=== PATIENT | male | born 1985 | race Caucasian/White ===

== ENCOUNTER 2021-08-25 13:04 | Inpatient (IN) | payer OTHER ==
[2021-08-25 13:16] VITALS: BMI 26.6
[2021-08-25] MEDS ORDERED: diazePAM 5 MG TABLET PO PRN (14:03)
[2021-08-25] MEDS ORDERED: methaDONE HCL 10 MG TABLET (FOR DETOX USE ONLY) PO ONE (14:03)
[2021-08-25] MEDS ORDERED: NICOTINE 10 MG CARTRIDGE (INHALER) IH PRN (14:03)
[2021-08-25] MEDS ORDERED: MAG HYDROX/AL HYDROX/SIMETH 30 ML UNIT-DOSE CUP PO PRN (14:03)
[2021-08-25] MEDS ORDERED: IBUPROFEN 400 MG TABLET (FP) PO PRN (14:03)
[2021-08-25] MEDS ORDERED: BENZOCAINE/MENTHOL (CHLORASEPTIC ) LOZENGE MM PRN (14:03)
[2021-08-25] MEDS ORDERED: LOPERAMIDE HCL 2 MG CAPSULE PO PRN (14:03)
[2021-08-25] MEDS ORDERED: MAGNESIUM HYDROX 2400MG/30ML ORAL SUSPENSION 30 ML CUP PO PRN (14:03)
[2021-08-25] MEDS ORDERED: DICYCLOMINE HCL 10 MG CAPSULE PO PRN (14:03)
[2021-08-25] MEDS ORDERED: MAGNESIUM CITRATE 300 ML BOTTLE PO PRN (14:03)
[2021-08-25] MEDS ORDERED: ONDANSETRON *ODT* 4 MG TABLET SL PRN (14:03)
[2021-08-25] MEDS ORDERED: IBUPROFEN 600 MG TABLET (FP) PO PRN (14:03)
[2021-08-25] MEDS ORDERED: ACETAMINOPHEN 325 MG TABLET (FP) PO PRN ×2 (14:03)
[2021-08-25] MEDS ORDERED: BISMUTH SUBSALICYLATE 524 MG/30 ML PO PRN (14:03)
[2021-08-25] MEDS ORDERED: METHOCARBAMOL 500 MG TABLET PO PRN (14:03)
[2021-08-25] MEDS ORDERED: cloNIDine HCL 0.1 MG TABLET PO PRN (14:03)
[2021-08-25] MEDS ORDERED: NALOXONE HCL (KLOXXADO) 8 MG SPRAY NS PRN (14:03)
[2021-08-25] MEDS: diazePAM 5 MG TABLET PO SCH ×2 (14:29→22:22)
[2021-08-25] MEDS: NICOTINE 21 MG/24 HOURS TOPICAL PATCH TD SCH (15:00)
[2021-08-25] MEDS: hydrOXYzine PAMOATE 25 MG CAPSULE (FP) PO SCH ×2 (17:15→22:22)
[2021-08-25] MEDS: THIAMINE HCL 100 MG TABLET (FP) PO SCH (22:22)
[2021-08-25] MEDS: MELATONIN 5 MG TABLETS PO SCH (22:23)
[2021-08-26] MEDS: diazePAM 5 MG TABLET PO SCH ×4 (05:14→22:04)
[2021-08-26] MEDS: hydrOXYzine PAMOATE 25 MG CAPSULE (FP) PO SCH ×5 (05:14→22:03)
[2021-08-26] MEDS ORDERED: methaDONE HCL 10 MG TABLET (FOR DETOX USE ONLY) ONE (08:59)
[2021-08-26] MEDS: NICOTINE 21 MG/24 HOURS TOPICAL PATCH TD SCH (09:33)
[2021-08-26] MEDS ORDERED: PRENATAL VITAMINS W/ FOLIC ACID TABLET (FP) PO SCH (10:00)
[2021-08-26 10:37] LABS: ALBUMIN 4.2 g/dl (3.4-5.0); BLOOD UREA NITROGEN 18.7 mg/dL (7-18); CALCIUM 9.3 mg/dL (8.5-10.1)
[2021-08-26 10:41] LABS: CREATININE 0.9 mg/dL (0.55-1.3)
[2021-08-26 10:42] LABS: BILIRUBIN,TOTAL 0.3 mg/dL (0.2-1); TOT PROT 7.9 g/dl (6.4-8.2)
[2021-08-26 10:44] LABS: HEMATOCRIT 39.2 % (35.4-49); HEMOGLOBIN 12.9 GM/dL (11.7-16.9); MCH 26.8 pg (25.7-33.7); MEAN CELL VOLUME 81.2 fl (80-96); MEAN PLT VOLUME 9.6 fl (7.5-11.1); PLATELET COUNT 261 10^3/uL (134-434); RBC 4.82 M/mm3 (4.00-5.60); RDW 15.6 % (11.9-15.9); WHITE BLOOD COUNT 4.2 K/mm3 (4.0-10.0)
[2021-08-26] MEDS: THIAMINE HCL 100 MG TABLET (FP) PO SCH (22:03)
[2021-08-26] MEDS: MELATONIN 5 MG TABLETS PO SCH (22:04)
[2021-08-27] MEDS ORDERED: diazePAM 5 MG TABLET PO SCH (06:00)
[2021-08-27] MEDS: hydrOXYzine PAMOATE 25 MG CAPSULE (FP) PO SCH (06:38)
[2021-08-27 06:45] VITALS: BP 107/70; PULSE 85; TEMP 97.7
[2021-08-27] MEDS ORDERED: methaDONE HCL 10 MG TABLET (FOR DETOX USE ONLY) PO ONE (10:00)
[2021-08-27] MEDS ORDERED: ALBUTEROL SO4 HFA INHALER IH PRN (11:37)
[2021-08-28] MEDS ORDERED: diazePAM 5 MG TABLET PO SCH (06:00)
[2021-08-29] MEDS ORDERED: diazePAM 5 MG TABLET PO ONE (06:00)
[2021-08-29] MEDS ORDERED: methaDONE HCL 10 MG TABLET (FOR DETOX USE ONLY) PO ONE (10:00)
== END 2021-08-27 10:14 | disposition left against medical advice (07) | DRG 770 ==
LOC: YASAS 13:04 → Y6N 14:22
PROVIDERS: ADMIT Allergy & Immunology; ATTEND Surgery
PROC: HZ2ZZZZ Detoxification Services for Substance Abuse Treatment (ICD-10-PCS; principal; 2021-08-25)
DX: F11.23 Opioid dependence with withdrawal (principal); F13.230 Sedative, hypnotic or anxiolytic dependence with withdrawal, uncomplicated; F14.20 Cocaine dependence, uncomplicated; F12.20 Cannabis dependence, uncomplicated; F17.210 Nicotine dependence, cigarettes, uncomplicated; F41.8 Other specified anxiety disorders; J45.909 Unspecified asthma, uncomplicated; B18.2 Chronic viral hepatitis C; G47.00 Insomnia, unspecified; Z20.822 Contact with and (suspected) exposure to COVID-19; Z88.8 Allergy status to other drugs, medicaments and biological substances; Z88.0 Allergy status to penicillin; Z88.6 Allergy status to analgesic agent
CPT/HCPCS: 36415; 80053; 85027; 86780; 87811; 93005; 93010; C9803-CS; J0735; U0003; U0005

== ENCOUNTER 2021-12-20 11:25 | Inpatient (IN) | payer OTHER ==
[2021-12-20 11:47] VITALS: BMI 30.5
[2021-12-20] MEDS ORDERED: LOPERAMIDE HCL 2 MG CAPSULE PO PRN (12:01)
[2021-12-20] MEDS ORDERED: guaiFENesin 200 MG/10 ML 10 ML UNIT-DOSE CUPS PO PRN (12:01)
[2021-12-20] MEDS ORDERED: MAGNESIUM HYDROX 2400MG/30ML ORAL SUSPENSION 30 ML CUP PO PRN (12:01)
[2021-12-20] MEDS ORDERED: MAGNESIUM CITRATE 300 ML BOTTLE PO PRN (12:01)
[2021-12-20] MEDS ORDERED: ACETAMINOPHEN 325 MG TABLET (FP) PO PRN (12:01)
[2021-12-20] MEDS ORDERED: NICOTINE 10 MG CARTRIDGE (INHALER) IH PRN (12:01)
[2021-12-20] MEDS ORDERED: P-EPHED 60MG/TRIPROLIDI 2.5MG TABLET PO PRN (12:01)
[2021-12-20] MEDS ORDERED: ALBUTEROL SO4 HFA INHALER IH PRN (12:06)
[2021-12-20] MEDS ORDERED: NICOTINE 7 MG/24 HOURS TOPICAL PATCH TD SCH (12:15)
[2021-12-20] MEDS ORDERED: NICOTINE 14 MG/24 HOURS TOPICAL PATCH TD SCH (12:15)
[2021-12-20] MEDS ORDERED: TUBERCULIN PPD 5 TU/0.1ML VIAL ID ONE (16:27)
[2021-12-20] MEDS: hydrOXYzine PAMOATE 25 MG CAPSULE (FP) PO PRN (16:29)
[2021-12-20] MEDS: NICOTINE 21 MG/24 HOURS TOPICAL PATCH TD SCH (16:29)
[2021-12-20] MEDS: PRENATAL VITAMINS W/ FOLIC ACID TABLET (FP) PO SCH (16:33)
[2021-12-20 17:18] LABS: HEMATOCRIT 37.3 % (35.4-49); HEMOGLOBIN 12.4 GM/dL (11.7-16.9); MCH 26.9 pg (25.7-33.7); MCHC 33.2 g/dl (32.0-35.9); MEAN CELL VOLUME 81.2 fl (80-96); MEAN PLT VOLUME 9.4 fl (7.5-11.1); PLATELET COUNT 174 10^3/uL (134-434); WHITE BLOOD COUNT 4.8 K/mm3 (4.0-10.0)
[2021-12-20 17:25] LABS: BLOOD UREA NITROGEN 14.8 mg/dL (7-18); CALCIUM 9.4 mg/dL (8.5-10.1)
[2021-12-20 17:28] LABS: CREATININE 1.1 mg/dL (0.55-1.3)
[2021-12-20 17:30] LABS: BILIRUBIN,TOTAL 0.3 mg/dL (0.2-1); TOT PROT 7.4 g/dl (6.4-8.2)
[2021-12-20 17:50] LABS: SYPHILIS W/ RPR CONF NON-REACTIVE (NONREACTIVE)
[2021-12-20] MEDS: THIAMINE HCL 100 MG TABLET (FP) PO SCH (21:15)
[2021-12-20] MEDS: MELATONIN 5 MG TABLETS PO SCH (21:15)
[2021-12-21] MEDS ORDERED: NICOTINE 7 MG/24 HOURS TOPICAL PATCH TD SCH (10:00)
[2021-12-21] MEDS ORDERED: methaDONE HCL 10 MG TABLET PO SCH (10:00)
[2021-12-21] MEDS: PRENATAL VITAMINS W/ FOLIC ACID TABLET (FP) PO SCH (10:15)
[2021-12-21] MEDS: NICOTINE 21 MG/24 HOURS TOPICAL PATCH TD SCH (10:17)
[2021-12-21] MEDS: hydrOXYzine PAMOATE 25 MG CAPSULE (FP) PO PRN ×2 (10:17→21:10)
[2021-12-21] MEDS ORDERED: methaDONE 80 MG, methaDONE 10 MG PO ONE (10:30)
[2021-12-21] MEDS: MAG HYDROX/AL HYDROX/SIMETH 30 ML UNIT-DOSE CUP PO PRN (11:43)
[2021-12-21] MEDS: PSYLLIUM 5.85 GM PACKET PO SCH ×2 (13:15→21:11)
[2021-12-21] MEDS: DOCUSATE SODIUM 100 MG CAPSULE (FP) PO SCH ×2 (13:21→21:10)
[2021-12-21] MEDS: GABAPENTIN 100 MG CAPSULE PO SCH ×2 (13:22→21:10)
[2021-12-21] MEDS ORDERED: GLYCERIN 1 RECTAL SUPPOSITORY, ADULT RC ONE (18:34)
[2021-12-21] MEDS: THIAMINE HCL 100 MG TABLET (FP) PO SCH (21:10)
[2021-12-21] MEDS: MELATONIN 5 MG TABLETS PO SCH (21:10)
[2021-12-21] MEDS: HYDROCORTISONE ACETATE 25 MG/SUPP.RECT RC SCH (21:11)
[2021-12-22] MEDS: methaDONE 80 MG, methaDONE 10 MG PO SCH (06:08)
[2021-12-22] MEDS: DOCUSATE SODIUM 100 MG CAPSULE (FP) PO SCH ×3 (06:08→21:16)
[2021-12-22] MEDS: GABAPENTIN 100 MG CAPSULE PO SCH ×3 (06:08→21:16)
[2021-12-22] MEDS: MAG HYDROX/AL HYDROX/SIMETH 30 ML UNIT-DOSE CUP PO PRN (09:30)
[2021-12-22] MEDS: NICOTINE 21 MG/24 HOURS TOPICAL PATCH TD SCH (09:31)
[2021-12-22] MEDS: PRENATAL VITAMINS W/ FOLIC ACID TABLET (FP) PO SCH (09:31)
[2021-12-22] MEDS: PSYLLIUM 5.85 GM PACKET PO SCH ×2 (09:31→21:34)
[2021-12-22] MEDS: SERTRALINE HCL 50 MG TABLET (FP) PO SCH (09:32)
[2021-12-22] MEDS: hydrOXYzine PAMOATE 25 MG CAPSULE (FP) PO PRN ×2 (13:25→21:16)
[2021-12-22] MEDS: MELATONIN 5 MG TABLETS PO SCH (21:15)
[2021-12-22] MEDS: THIAMINE HCL 100 MG TABLET (FP) PO SCH (21:15)
[2021-12-22] MEDS: HYDROCORTISONE ACETATE 25 MG/SUPP.RECT RC SCH (21:34)
[2021-12-23] MEDS: DOCUSATE SODIUM 100 MG CAPSULE (FP) PO SCH ×3 (06:19→21:19)
[2021-12-23] MEDS: GABAPENTIN 100 MG CAPSULE PO SCH ×3 (06:19→21:19)
[2021-12-23] MEDS: hydrOXYzine PAMOATE 25 MG CAPSULE (FP) PO PRN ×2 (06:19→17:23)
[2021-12-23] MEDS: methaDONE 80 MG, methaDONE 10 MG PO SCH (06:19)
[2021-12-23] MEDS: PSYLLIUM 5.85 GM PACKET PO SCH ×2 (09:43→21:21)
[2021-12-23] MEDS: NICOTINE 21 MG/24 HOURS TOPICAL PATCH TD SCH (09:43)
[2021-12-23] MEDS: SERTRALINE HCL 50 MG TABLET (FP) PO SCH (09:44)
[2021-12-23] MEDS: PRENATAL VITAMINS W/ FOLIC ACID TABLET (FP) PO SCH (09:44)
[2021-12-23 14:23] LABS: URINE APPEARANCE CLEAR; URINE BILIRUBIN NEGATIVE (NEGATIVE); URINE COLOR YELLOW; URINE GLUCOSE (UA) NEGATIVE (NEGATIVE); URINE KETONE NEGATIVE (NEGATIVE); URINE LEUK ESTERASE NEGATIVE (NEGATIVE); URINE NITRITE NEGATIVE (NEGATIVE); URINE PROTEIN NEGATIVE (NEGATIVE); URINE UROBILINOGEN 0.2 mg/dL (0.2-1.0)
[2021-12-23] MEDS: IBUPROFEN 400 MG TABLET (FP) PO PRN (20:20)
[2021-12-23] MEDS: THIAMINE HCL 100 MG TABLET (FP) PO SCH (21:19)
[2021-12-23] MEDS: MELATONIN 5 MG TABLETS PO SCH (21:19)
[2021-12-23] MEDS: HYDROCORTISONE ACETATE 25 MG/SUPP.RECT RC SCH (21:20)
[2021-12-24] MEDS: DOCUSATE SODIUM 100 MG CAPSULE (FP) PO SCH ×3 (06:21→21:08)
[2021-12-24] MEDS: GABAPENTIN 100 MG CAPSULE PO SCH ×3 (06:21→21:08)
[2021-12-24] MEDS: methaDONE 80 MG, methaDONE 10 MG PO SCH (06:21)
[2021-12-24] MEDS: hydrOXYzine PAMOATE 25 MG CAPSULE (FP) PO PRN ×3 (06:23→21:08)
[2021-12-24] MEDS: PSYLLIUM 5.85 GM PACKET PO SCH ×2 (09:38→21:09)
[2021-12-24] MEDS: NICOTINE 21 MG/24 HOURS TOPICAL PATCH TD SCH (09:38)
[2021-12-24] MEDS: PRENATAL VITAMINS W/ FOLIC ACID TABLET (FP) PO SCH (09:39)
[2021-12-24] MEDS: SERTRALINE HCL 50 MG TABLET (FP) PO SCH (09:39)
[2021-12-24] MEDS: IBUPROFEN 400 MG TABLET (FP) PO PRN (16:34)
[2021-12-24] MEDS: THIAMINE HCL 100 MG TABLET (FP) PO SCH (21:08)
[2021-12-24] MEDS: HYDROCORTISONE ACETATE 25 MG/SUPP.RECT RC SCH (21:08)
[2021-12-24] MEDS: MELATONIN 5 MG TABLETS PO SCH (21:08)
[2021-12-25] MEDS: DOCUSATE SODIUM 100 MG CAPSULE (FP) PO SCH ×3 (06:21→21:06)
[2021-12-25] MEDS: methaDONE 80 MG, methaDONE 10 MG PO SCH (06:21)
[2021-12-25] MEDS: GABAPENTIN 100 MG CAPSULE PO SCH ×3 (06:23→21:06)
[2021-12-25] MEDS: PRENATAL VITAMINS W/ FOLIC ACID TABLET (FP) PO SCH (09:38)
[2021-12-25] MEDS: SERTRALINE HCL 50 MG TABLET (FP) PO SCH (09:38)
[2021-12-25] MEDS: NICOTINE 21 MG/24 HOURS TOPICAL PATCH TD SCH (09:38)
[2021-12-25] MEDS: PSYLLIUM 5.85 GM PACKET PO SCH ×2 (09:39→21:05)
[2021-12-25] MEDS: hydrOXYzine PAMOATE 25 MG CAPSULE (FP) PO PRN ×3 (09:41→21:06)
[2021-12-25] MEDS: MAG HYDROX/AL HYDROX/SIMETH 30 ML UNIT-DOSE CUP PO PRN (11:46)
[2021-12-25] MEDS: HYDROCORTISONE ACETATE 25 MG/SUPP.RECT RC SCH (21:06)
[2021-12-25] MEDS: MELATONIN 5 MG TABLETS PO SCH (21:06)
[2021-12-25] MEDS: THIAMINE HCL 100 MG TABLET (FP) PO SCH (21:06)
[2021-12-26] MEDS: DOCUSATE SODIUM 100 MG CAPSULE (FP) PO SCH ×3 (06:26→21:05)
[2021-12-26] MEDS: methaDONE 80 MG, methaDONE 10 MG PO SCH (06:26)
[2021-12-26] MEDS: GABAPENTIN 100 MG CAPSULE PO SCH ×3 (06:26→21:05)
[2021-12-26] MEDS: hydrOXYzine PAMOATE 25 MG CAPSULE (FP) PO PRN ×3 (06:27→21:05)
[2021-12-26] MEDS: MAG HYDROX/AL HYDROX/SIMETH 30 ML UNIT-DOSE CUP PO PRN (07:49)
[2021-12-26] MEDS: PSYLLIUM 5.85 GM PACKET PO SCH ×2 (09:49→21:05)
[2021-12-26] MEDS: SERTRALINE HCL 50 MG TABLET (FP) PO SCH (09:49)
[2021-12-26] MEDS: NICOTINE 21 MG/24 HOURS TOPICAL PATCH TD SCH (09:49)
[2021-12-26] MEDS: PRENATAL VITAMINS W/ FOLIC ACID TABLET (FP) PO SCH (09:49)
[2021-12-26] MEDS: THIAMINE HCL 100 MG TABLET (FP) PO SCH (21:05)
[2021-12-26] MEDS: MELATONIN 5 MG TABLETS PO SCH (21:05)
[2021-12-26] MEDS: HYDROCORTISONE ACETATE 25 MG/SUPP.RECT RC SCH (21:06)
[2021-12-27] MEDS: GABAPENTIN 100 MG CAPSULE PO SCH ×3 (06:20→21:00)
[2021-12-27] MEDS: methaDONE 80 MG, methaDONE 10 MG PO SCH (06:20)
[2021-12-27] MEDS: DOCUSATE SODIUM 100 MG CAPSULE (FP) PO SCH ×3 (06:20→20:59)
[2021-12-27] MEDS: PSYLLIUM 5.85 GM PACKET PO SCH ×2 (09:00→21:00)
[2021-12-27] MEDS: NICOTINE 21 MG/24 HOURS TOPICAL PATCH TD SCH (09:01)
[2021-12-27] MEDS: hydrOXYzine PAMOATE 25 MG CAPSULE (FP) PO PRN ×3 (09:02→20:59)
[2021-12-27] MEDS: PRENATAL VITAMINS W/ FOLIC ACID TABLET (FP) PO SCH (09:02)
[2021-12-27] MEDS: SERTRALINE HCL 50 MG TABLET (FP) PO SCH (09:02)
[2021-12-27] MEDS: MAG HYDROX/AL HYDROX/SIMETH 30 ML UNIT-DOSE CUP PO PRN (18:39)
[2021-12-27] MEDS: MELATONIN 5 MG TABLETS PO SCH (21:00)
[2021-12-27] MEDS: HYDROCORTISONE ACETATE 25 MG/SUPP.RECT RC SCH (21:00)
[2021-12-27] MEDS: THIAMINE HCL 100 MG TABLET (FP) PO SCH (21:01)
[2021-12-28] MEDS: DOCUSATE SODIUM 100 MG CAPSULE (FP) PO SCH ×3 (06:06→21:05)
[2021-12-28] MEDS: GABAPENTIN 100 MG CAPSULE PO SCH ×3 (06:06→21:04)
[2021-12-28] MEDS: methaDONE 80 MG, methaDONE 10 MG PO SCH (06:06)
[2021-12-28] MEDS: MAG HYDROX/AL HYDROX/SIMETH 30 ML UNIT-DOSE CUP PO PRN (07:23)
[2021-12-28] MEDS: PSYLLIUM 5.85 GM PACKET PO SCH ×2 (10:06→21:07)
[2021-12-28] MEDS: hydrOXYzine PAMOATE 25 MG CAPSULE (FP) PO PRN ×3 (10:06→21:05)
[2021-12-28] MEDS: PRENATAL VITAMINS W/ FOLIC ACID TABLET (FP) PO SCH (10:06)
[2021-12-28] MEDS: NICOTINE 21 MG/24 HOURS TOPICAL PATCH TD SCH (10:06)
[2021-12-28] MEDS: SERTRALINE HCL 50 MG TABLET (FP) PO SCH (10:06)
[2021-12-28] MEDS: THIAMINE HCL 100 MG TABLET (FP) PO SCH (21:04)
[2021-12-28] MEDS: MELATONIN 5 MG TABLETS PO SCH (21:04)
[2021-12-28] MEDS: HYDROCORTISONE ACETATE 25 MG/SUPP.RECT RC SCH (21:06)
[2021-12-29] MEDS ORDERED: methaDONE HCL 10 MG TABLET PO SCH ×2 (06:00)
[2021-12-29] MEDS: methaDONE 80 MG, methaDONE 10 MG PO SCH (06:18)
[2021-12-29] MEDS: GABAPENTIN 100 MG CAPSULE PO SCH (06:19)
[2021-12-29] MEDS: DOCUSATE SODIUM 100 MG CAPSULE (FP) PO SCH ×3 (06:19→21:04)
[2021-12-29] MEDS: PSYLLIUM 5.85 GM PACKET PO SCH ×2 (09:49→21:04)
[2021-12-29] MEDS: NICOTINE 21 MG/24 HOURS TOPICAL PATCH TD SCH (09:49)
[2021-12-29] MEDS: SERTRALINE HCL 50 MG TABLET (FP) PO SCH (09:50)
[2021-12-29] MEDS: PRENATAL VITAMINS W/ FOLIC ACID TABLET (FP) PO SCH (09:50)
[2021-12-29] MEDS: MAG HYDROX/AL HYDROX/SIMETH 30 ML UNIT-DOSE CUP PO PRN (11:56)
[2021-12-29] MEDS: hydrOXYzine PAMOATE 25 MG CAPSULE (FP) PO PRN ×2 (13:03→21:04)
[2021-12-29] MEDS: GABAPENTIN 300 MG CAPSULE PO SCH ×2 (13:13→21:04)
[2021-12-29] MEDS ORDERED: GABAPENTIN 100 MG CAPSULE PO SCH (14:00)
[2021-12-29] MEDS: MELATONIN 5 MG TABLETS PO SCH (21:04)
[2021-12-29] MEDS: THIAMINE HCL 100 MG TABLET (FP) PO SCH (21:04)
[2021-12-29] MEDS: IBUPROFEN 400 MG TABLET (FP) PO PRN (21:05)
[2021-12-29] MEDS: HYDROCORTISONE ACETATE 25 MG/SUPP.RECT RC SCH (23:17)
[2021-12-30] MEDS: methaDONE 80 MG, methaDONE 10 MG PO SCH (06:21)
[2021-12-30] MEDS: DOCUSATE SODIUM 100 MG CAPSULE (FP) PO SCH ×3 (06:21→21:04)
[2021-12-30] MEDS: GABAPENTIN 300 MG CAPSULE PO SCH ×3 (06:21→21:05)
[2021-12-30] MEDS: hydrOXYzine PAMOATE 25 MG CAPSULE (FP) PO PRN ×3 (06:22→21:05)
[2021-12-30] MEDS: SERTRALINE HCL 50 MG TABLET (FP) PO SCH (09:43)
[2021-12-30] MEDS: PSYLLIUM 5.85 GM PACKET PO SCH ×2 (09:44→21:31)
[2021-12-30] MEDS: NICOTINE 21 MG/24 HOURS TOPICAL PATCH TD SCH (09:44)
[2021-12-30] MEDS: PRENATAL VITAMINS W/ FOLIC ACID TABLET (FP) PO SCH (09:46)
[2021-12-30] MEDS: THIAMINE HCL 100 MG TABLET (FP) PO SCH (21:04)
[2021-12-30] MEDS: traZODone HCL 50 MG TABLET (FP) PO PRN (21:05)
[2021-12-30] MEDS: HYDROCORTISONE ACETATE 25 MG/SUPP.RECT RC SCH (21:30)
[2021-12-31] MEDS: methaDONE 80 MG, methaDONE 10 MG PO SCH (06:24)
[2021-12-31] MEDS: DOCUSATE SODIUM 100 MG CAPSULE (FP) PO SCH ×3 (06:25→21:06)
[2021-12-31] MEDS: GABAPENTIN 300 MG CAPSULE PO SCH ×3 (06:25→21:06)
[2021-12-31] MEDS: PRENATAL VITAMINS W/ FOLIC ACID TABLET (FP) PO SCH (09:48)
[2021-12-31] MEDS: NICOTINE 21 MG/24 HOURS TOPICAL PATCH TD SCH (09:48)
[2021-12-31] MEDS: SERTRALINE HCL 50 MG TABLET (FP) PO SCH (09:48)
[2021-12-31] MEDS: PSYLLIUM 5.85 GM PACKET PO SCH ×2 (09:48→21:07)
[2021-12-31] MEDS: hydrOXYzine PAMOATE 25 MG CAPSULE (FP) PO PRN ×2 (09:49→21:06)
[2021-12-31] MEDS: traZODone HCL 50 MG TABLET (FP) PO PRN (21:05)
[2021-12-31] MEDS: THIAMINE HCL 100 MG TABLET (FP) PO SCH (21:06)
[2021-12-31] MEDS: HYDROCORTISONE ACETATE 25 MG/SUPP.RECT RC SCH (22:29)
[2022-01-01] MEDS: methaDONE 80 MG, methaDONE 10 MG PO SCH (06:18)
[2022-01-01] MEDS: DOCUSATE SODIUM 100 MG CAPSULE (FP) PO SCH ×3 (06:18→21:04)
[2022-01-01] MEDS: GABAPENTIN 300 MG CAPSULE PO SCH ×3 (06:18→21:03)
[2022-01-01] MEDS: hydrOXYzine PAMOATE 25 MG CAPSULE (FP) PO PRN ×2 (06:18→21:03)
[2022-01-01] MEDS: SERTRALINE HCL 50 MG TABLET (FP) PO SCH (09:29)
[2022-01-01] MEDS: PRENATAL VITAMINS W/ FOLIC ACID TABLET (FP) PO SCH (09:29)
[2022-01-01] MEDS: PSYLLIUM 5.85 GM PACKET PO SCH ×2 (09:29→21:52)
[2022-01-01] MEDS: NICOTINE 21 MG/24 HOURS TOPICAL PATCH TD SCH (09:29)
[2022-01-01] MEDS: MAG HYDROX/AL HYDROX/SIMETH 30 ML UNIT-DOSE CUP PO PRN (12:49)
[2022-01-01] MEDS: THIAMINE HCL 100 MG TABLET (FP) PO SCH (21:01)
[2022-01-01] MEDS: traZODone HCL 50 MG TABLET (FP) PO PRN (21:03)
[2022-01-01] MEDS: HYDROCORTISONE ACETATE 25 MG/SUPP.RECT RC SCH (21:53)
[2022-01-02] MEDS: methaDONE 80 MG, methaDONE 10 MG PO SCH (06:20)
[2022-01-02] MEDS: DOCUSATE SODIUM 100 MG CAPSULE (FP) PO SCH ×3 (06:20→21:03)
[2022-01-02] MEDS: GABAPENTIN 300 MG CAPSULE PO SCH ×4 (06:20→21:03)
[2022-01-02] MEDS: MAG HYDROX/AL HYDROX/SIMETH 30 ML UNIT-DOSE CUP PO PRN (08:24)
[2022-01-02] MEDS: NICOTINE 21 MG/24 HOURS TOPICAL PATCH TD SCH (09:38)
[2022-01-02] MEDS: hydrOXYzine PAMOATE 25 MG CAPSULE (FP) PO PRN ×2 (09:38→14:05)
[2022-01-02] MEDS: SERTRALINE HCL 50 MG TABLET (FP) PO SCH (09:38)
[2022-01-02] MEDS: PRENATAL VITAMINS W/ FOLIC ACID TABLET (FP) PO SCH (09:38)
[2022-01-02] MEDS: PSYLLIUM 5.85 GM PACKET PO SCH ×2 (09:39→21:03)
[2022-01-02] MEDS: THIAMINE HCL 100 MG TABLET (FP) PO SCH (21:03)
[2022-01-02] MEDS: traZODone HCL 50 MG TABLET (FP) PO PRN (21:03)
[2022-01-02] MEDS: HYDROCORTISONE ACETATE 25 MG/SUPP.RECT RC SCH (21:04)
[2022-01-03] MEDS: GABAPENTIN 300 MG CAPSULE PO SCH ×3 (06:05→21:02)
[2022-01-03] MEDS: methaDONE 80 MG, methaDONE 10 MG PO SCH (06:05)
[2022-01-03] MEDS: DOCUSATE SODIUM 100 MG CAPSULE (FP) PO SCH ×3 (06:05→21:02)
[2022-01-03] MEDS: hydrOXYzine PAMOATE 25 MG CAPSULE (FP) PO PRN ×3 (08:38→21:02)
[2022-01-03] MEDS: SERTRALINE HCL 50 MG TABLET (FP) PO SCH (09:09)
[2022-01-03] MEDS: PRENATAL VITAMINS W/ FOLIC ACID TABLET (FP) PO SCH (09:09)
[2022-01-03] MEDS: NICOTINE 21 MG/24 HOURS TOPICAL PATCH TD SCH (09:09)
[2022-01-03] MEDS: PSYLLIUM 5.85 GM PACKET PO SCH ×2 (09:09→21:57)
[2022-01-03] MEDS: HYDROCORTISONE ACETATE 25 MG/SUPP.RECT RC SCH (21:01)
[2022-01-03] MEDS: THIAMINE HCL 100 MG TABLET (FP) PO SCH (21:02)
[2022-01-03] MEDS: traZODone HCL 50 MG TABLET (FP) PO PRN (21:04)
[2022-01-04] MEDS: methaDONE 80 MG, methaDONE 10 MG PO SCH (06:03)
[2022-01-04] MEDS: hydrOXYzine PAMOATE 25 MG CAPSULE (FP) PO PRN ×2 (06:04→16:32)
[2022-01-04] MEDS: DOCUSATE SODIUM 100 MG CAPSULE (FP) PO SCH ×3 (06:04→21:01)
[2022-01-04] MEDS: GABAPENTIN 300 MG CAPSULE PO SCH ×3 (06:04→21:01)
[2022-01-04 06:40] VITALS: TEMP 97.3
[2022-01-04] MEDS: NICOTINE 21 MG/24 HOURS TOPICAL PATCH TD SCH (09:48)
[2022-01-04] MEDS: PRENATAL VITAMINS W/ FOLIC ACID TABLET (FP) PO SCH (09:48)
[2022-01-04] MEDS: MAG HYDROX/AL HYDROX/SIMETH 30 ML UNIT-DOSE CUP PO PRN ×2 (09:49→16:58)
[2022-01-04] MEDS: PSYLLIUM 5.85 GM PACKET PO SCH ×2 (09:50→21:01)
[2022-01-04] MEDS: SERTRALINE HCL 50 MG TABLET (FP) PO SCH (09:50)
[2022-01-04] MEDS: traZODone HCL 50 MG TABLET (FP) PO PRN (21:01)
[2022-01-04] MEDS: THIAMINE HCL 100 MG TABLET (FP) PO SCH (21:01)
[2022-01-04] MEDS: HYDROCORTISONE ACETATE 25 MG/SUPP.RECT RC SCH (21:02)
[2022-01-05] MEDS: methaDONE 80 MG, methaDONE 10 MG PO SCH (05:59)
[2022-01-05] MEDS: hydrOXYzine PAMOATE 25 MG CAPSULE (FP) PO PRN (06:00)
[2022-01-05] MEDS: GABAPENTIN 300 MG CAPSULE PO SCH (06:00)
[2022-01-05] MEDS: DOCUSATE SODIUM 100 MG CAPSULE (FP) PO SCH (06:00)
[2022-01-05 06:52] VITALS: BP 127/86; PULSE 78; RESP 18
[2022-01-05] MEDS: SERTRALINE HCL 50 MG TABLET (FP) PO SCH (09:00)
[2022-01-05] MEDS: PRENATAL VITAMINS W/ FOLIC ACID TABLET (FP) PO SCH (09:00)
[2022-01-05] MEDS: NICOTINE 21 MG/24 HOURS TOPICAL PATCH TD SCH (09:00)
[2022-01-05] MEDS: PSYLLIUM 5.85 GM PACKET PO SCH (09:00)
[2022-01-05] MEDS: MAG HYDROX/AL HYDROX/SIMETH 30 ML UNIT-DOSE CUP PO PRN (09:03)
== END 2022-01-05 09:10 | disposition home or self-care (01) | DRG 772 ==
LOC: YASAS 11:25 → Y3E 15:31 → Y3W 01-01 10:26
PROVIDERS: ADMIT Allergy & Immunology; ATTEND Psychiatry & Neurology Pain Medicine
PROC: HZ42ZZZ Group Counseling for Substance Abuse Treatment, Cognitive-Behavioral (ICD-10-PCS; principal; 2021-12-20)
DX: F11.20 Opioid dependence, uncomplicated (principal); F10.20 Alcohol dependence, uncomplicated; F13.20 Sedative, hypnotic or anxiolytic dependence, uncomplicated; F17.210 Nicotine dependence, cigarettes, uncomplicated; F19.282 Other psychoactive substance dependence with psychoactive substance-induced sleep disorder; F19.280 Other psychoactive substance dependence with psychoactive substance-induced anxiety disorder; F32.A Depression, unspecified; F41.9 Anxiety disorder, unspecified; G47.00 Insomnia, unspecified; J45.909 Unspecified asthma, uncomplicated; B18.2 Chronic viral hepatitis C; K59.03 Drug induced constipation; Z88.8 Allergy status to other drugs, medicaments and biological substances; Z88.0 Allergy status to penicillin; Z88.6 Allergy status to analgesic agent
CPT/HCPCS: 36415; 80053; 81003; 82140; 85027; 86780; 86803; 87522; C9803-CS; U0003; U0005

== ENCOUNTER 2022-08-04 12:20 | Inpatient (IN) | payer OTHER ==
[2022-08-04 12:54] VITALS: BMI 29.2
[2022-08-04] MEDS ORDERED: POLYETHYLENE GLYCOL (HEALTHYLAX) 3350 17 GM PACKET PO PRN (13:09)
[2022-08-04] MEDS ORDERED: LOPERAMIDE HCL 2 MG CAPSULE PO PRN (13:09)
[2022-08-04] MEDS ORDERED: NALOXONE HCL (KLOXXADO) 8 MG SPRAY NS PRN (13:09)
[2022-08-04] MEDS ORDERED: DICYCLOMINE HCL 10 MG CAPSULE PO PRN (13:09)
[2022-08-04] MEDS ORDERED: ONDANSETRON *ODT* 4 MG TABLET SL PRN (13:09)
[2022-08-04] MEDS ORDERED: BISMUTH SUBSALICYLATE 524 MG/30 ML PO PRN (13:09)
[2022-08-04] MEDS ORDERED: ACETAMINOPHEN 325 MG TABLET (FP) PO PRN (13:09)
[2022-08-04] MEDS ORDERED: BENZONATATE 200 MG CAPSULE PO PRN (13:09)
[2022-08-04] MEDS ORDERED: BENZOCAINE/MENTHOL (CHLORASEPTIC ) LOZENGE MM PRN (13:09)
[2022-08-04] MEDS ORDERED: IBUPROFEN 400 MG TABLET (FP) PO PRN (13:09)
[2022-08-04] MEDS ORDERED: IBUPROFEN 600 MG TABLET (FP) PO PRN (13:09)
[2022-08-04] MEDS ORDERED: guaiFENesin 600 MG TABLET.ER (FP) PO PRN (13:09)
[2022-08-04] MEDS ORDERED: NALOXONE HCL 0.4 MG/ML VIAL IM PRN (13:09)
[2022-08-04] MEDS ORDERED: LORazepam 1 MG TABLET PO PRN (13:09)
[2022-08-04] MEDS ORDERED: traZODone HCL 50 MG TABLET (FP) PO PRN (13:12)
[2022-08-04] MEDS ORDERED: ALBUTEROL SO4 HFA INHALER IH PRN (13:12)
[2022-08-04] MEDS ORDERED: LORazepam 2 MG TABLET ONE (13:54)
[2022-08-04] MEDS ORDERED: NICOTINE 14 MG/24 HOURS TOPICAL PATCH TD ONE (13:54)
[2022-08-04] MEDS ORDERED: PRENATAL VITAMINS W/ FOLIC ACID TABLET (FP) PO ONE (13:55)
[2022-08-04] MEDS ORDERED: LORazepam 2 MG TABLET PO ONE (14:00)
[2022-08-04] MEDS: NICOTINE 14 MG/24 HOURS TOPICAL PATCH TD SCH (14:11)
[2022-08-04] MEDS: PRENATAL VITAMINS W/ FOLIC ACID TABLET (FP) PO SCH (14:12)
[2022-08-04 15:54] LABS: HEMATOCRIT 36.6 % (35.4-49); HEMOGLOBIN 12.2 GM/dL (11.7-16.9); MCH 27.2 pg (25.7-33.7); MCHC 33.3 g/dl (32.0-35.9); MEAN CELL VOLUME 81.6 fl (80-96); MEAN PLT VOLUME 10.5 fl (7.5-11.1); PLATELET COUNT 156 10^3/uL (134-434); RBC 4.49 M/mm3 (4.00-5.60); RDW 15.9 % (11.9-15.9); WHITE BLOOD COUNT 3.5 K/mm3 (4.0-10.0)
[2022-08-04] MEDS: LORazepam 2 MG TABLET PO SCH ×2 (17:08→21:59)
[2022-08-04 17:19] LABS: POTASSIUM 4.2 mmol/L (3.5-5.1)
[2022-08-04 17:21] LABS: ALBUMIN 4.2 g/dl (3.4-5.0)
[2022-08-04 17:22] LABS: BLOOD UREA NITROGEN 20.1 mg/dL (7-18)
[2022-08-04 17:24] LABS: CREATININE 1.1 mg/dL (0.55-1.3)
[2022-08-04 17:26] LABS: BILIRUBIN,TOTAL 0.3 mg/dL (0.2-1); TOT PROT 7.6 g/dl (6.4-8.2)
[2022-08-04] MEDS: MELATONIN 5 MG TABLETS PO SCH (21:56)
[2022-08-04] MEDS: METHOCARBAMOL 500 MG TABLET PO PRN (21:56)
[2022-08-04] MEDS: hydrOXYzine PAMOATE 25 MG CAPSULE (FP) PO PRN (21:56)
[2022-08-04] MEDS: THIAMINE HCL 100 MG TABLET (FP) PO SCH (21:57)
[2022-08-05] MEDS: LORazepam 2 MG TABLET PO SCH ×4 (05:51→22:00)
[2022-08-05] MEDS: NICOTINE 10 MG CARTRIDGE (INHALER) IH PRN ×2 (07:04→15:19)
[2022-08-05] MEDS ORDERED: methaDONE HCL 10 MG TABLET PO SCH (09:00)
[2022-08-05] MEDS: PRENATAL VITAMINS W/ FOLIC ACID TABLET (FP) PO SCH (09:45)
[2022-08-05] MEDS: NICOTINE 14 MG/24 HOURS TOPICAL PATCH TD SCH (09:45)
[2022-08-05] MEDS: hydrOXYzine PAMOATE 25 MG CAPSULE (FP) PO PRN (11:14)
[2022-08-05] MEDS: METHOCARBAMOL 500 MG TABLET PO PRN (11:14)
[2022-08-05] MEDS: GABAPENTIN 100 MG CAPSULE PO SCH ×2 (13:28→21:59)
[2022-08-05] MEDS: MAGNESIUM HYDROX 2400MG/30ML ORAL SUSPENSION 30 ML CUP PO PRN (13:31)
[2022-08-05] MEDS: traZODone HCL 50 MG TABLET (FP) PO SCH (21:59)
[2022-08-05] MEDS: MELATONIN 5 MG TABLETS PO SCH (21:59)
[2022-08-05] MEDS: THIAMINE HCL 100 MG TABLET (FP) PO SCH (21:59)
[2022-08-06] MEDS: LORazepam 1 MG TABLET PO SCH ×4 (05:52→22:23)
[2022-08-06] MEDS: GABAPENTIN 100 MG CAPSULE PO SCH ×3 (05:54→22:23)
[2022-08-06] MEDS: NICOTINE 10 MG CARTRIDGE (INHALER) IH PRN ×2 (08:00→17:30)
[2022-08-06] MEDS: NICOTINE 14 MG/24 HOURS TOPICAL PATCH TD SCH (09:06)
[2022-08-06] MEDS: MAG HYDROX/AL HYDROX/SIMETH 30 ML UNIT-DOSE CUP PO PRN (09:07)
[2022-08-06] MEDS: PRENATAL VITAMINS W/ FOLIC ACID TABLET (FP) PO SCH (10:06)
[2022-08-06] MEDS: SERTRALINE HCL 50 MG TABLET (FP) PO SCH (10:06)
[2022-08-06] MEDS: cloNIDine HCL 0.1 MG TABLET PO PRN (10:07)
[2022-08-06] MEDS: MAGNESIUM HYDROX 2400MG/30ML ORAL SUSPENSION 30 ML CUP PO PRN (12:35)
[2022-08-06] MEDS: THIAMINE HCL 100 MG TABLET (FP) PO SCH (22:23)
[2022-08-06] MEDS: MELATONIN 5 MG TABLETS PO SCH (22:23)
[2022-08-06] MEDS: traZODone HCL 50 MG TABLET (FP) PO SCH (22:23)
[2022-08-07] MEDS ORDERED: LORazepam 0.5 MG TABLET PO PRN
[2022-08-07] MEDS: LORazepam 0.5 MG TABLET PO SCH ×4 (05:47→22:17)
[2022-08-07] MEDS: GABAPENTIN 100 MG CAPSULE PO SCH ×3 (05:47→22:17)
[2022-08-07] MEDS: NICOTINE 10 MG CARTRIDGE (INHALER) IH PRN (05:57)
[2022-08-07] MEDS: MAGNESIUM HYDROX 2400MG/30ML ORAL SUSPENSION 30 ML CUP PO PRN (07:18)
[2022-08-07] MEDS: PRENATAL VITAMINS W/ FOLIC ACID TABLET (FP) PO SCH (09:45)
[2022-08-07] MEDS: NICOTINE 14 MG/24 HOURS TOPICAL PATCH TD SCH (09:45)
[2022-08-07] MEDS: SERTRALINE HCL 50 MG TABLET (FP) PO SCH (09:45)
[2022-08-07] MEDS: MAG HYDROX/AL HYDROX/SIMETH 30 ML UNIT-DOSE CUP PO PRN (10:10)
[2022-08-07] MEDS ORDERED: LACTULOSE 20 GM/30 ML UDC (FOR ORAL USE ONLY) PO ONE (12:24)
[2022-08-07] MEDS: hydrOXYzine PAMOATE 25 MG CAPSULE (FP) PO PRN (14:29)
[2022-08-07] MEDS: cloNIDine HCL 0.1 MG TABLET PO PRN (14:29)
[2022-08-07] MEDS: traZODone HCL 50 MG TABLET (FP) PO SCH (22:16)
[2022-08-07] MEDS: THIAMINE HCL 100 MG TABLET (FP) PO SCH (22:17)
[2022-08-07] MEDS: MELATONIN 5 MG TABLETS PO SCH (22:17)
[2022-08-08] MEDS ORDERED: LORazepam 0.5 MG TABLET PO ONE (05:00)
[2022-08-08] MEDS: GABAPENTIN 100 MG CAPSULE PO SCH (05:52)
[2022-08-08 07:00] VITALS: RESP 18
[2022-08-08 08:42] VITALS: BP 130/88; PULSE 86; TEMP 97.9
[2022-08-08] MEDS: SERTRALINE HCL 50 MG TABLET (FP) PO SCH (09:38)
[2022-08-08] MEDS: MAG HYDROX/AL HYDROX/SIMETH 30 ML UNIT-DOSE CUP PO PRN (09:38)
[2022-08-08] MEDS: PRENATAL VITAMINS W/ FOLIC ACID TABLET (FP) PO SCH (09:38)
[2022-08-08] MEDS: NICOTINE 14 MG/24 HOURS TOPICAL PATCH TD SCH (09:39)
[2022-08-08] MEDS: cloNIDine HCL 0.1 MG TABLET PO PRN (09:41)
== END 2022-08-08 10:11 | disposition other institution (70) | DRG 773 ==
LOC: YASAS 12:20 → Y3N 14:15
PROVIDERS: ADMIT Allergy & Immunology; ATTEND Surgery
PROC: HZ2ZZZZ Detoxification Services for Substance Abuse Treatment (ICD-10-PCS; principal; 2022-08-04)
DX: F11.23 Opioid dependence with withdrawal (principal); F13.20 Sedative, hypnotic or anxiolytic dependence, uncomplicated; F15.20 Other stimulant dependence, uncomplicated; F17.210 Nicotine dependence, cigarettes, uncomplicated; F19.280 Other psychoactive substance dependence with psychoactive substance-induced anxiety disorder; G47.00 Insomnia, unspecified; I10 Essential (primary) hypertension; J45.20 Mild intermittent asthma, uncomplicated; B18.2 Chronic viral hepatitis C; Z86.59 Personal history of other mental and behavioral disorders; Z88.0 Allergy status to penicillin; Z88.6 Allergy status to analgesic agent; Z88.8 Allergy status to other drugs, medicaments and biological substances; Z91.148 Patient's other noncompliance with medication regimen for other reason
CPT/HCPCS: 36415; 80053; 85027; 86780; 87635; Q0162

== ENCOUNTER 2022-08-08 10:14 | Inpatient (IN) | payer OTHER ==
[2022-08-08] MEDS ORDERED: COLLOIDAL OATMEAL 1 BAR EACH TP PRN (12:32)
[2022-08-08] MEDS ORDERED: guaiFENesin 600 MG TABLET.ER (FP) PO PRN (12:32)
[2022-08-08] MEDS ORDERED: ACETAMINOPHEN 325 MG TABLET (FP) PO PRN (12:32)
[2022-08-08] MEDS ORDERED: BENZOCAINE/MENTHOL (CHLORASEPTIC ) LOZENGE MM PRN (12:32)
[2022-08-08] MEDS ORDERED: NICOTINE POLACRILEX 4 MG GUM BUC PRN (12:32)
[2022-08-08] MEDS ORDERED: METHOCARBAMOL 500 MG TABLET PO PRN (12:32)
[2022-08-08] MEDS ORDERED: LOPERAMIDE HCL 2 MG CAPSULE PO PRN (12:32)
[2022-08-08] MEDS ORDERED: AMMONIUM LACTATE 12% LOTION 225 GM BOTTLE TP PRN (12:32)
[2022-08-08] MEDS ORDERED: NICOTINE 10 MG CARTRIDGE (INHALER) IH PRN (12:32)
[2022-08-08] MEDS ORDERED: BENZONATATE 200 MG CAPSULE PO PRN (12:32)
[2022-08-08] MEDS ORDERED: ALBUTEROL SO4 HFA INHALER IH PRN (12:35)
[2022-08-08] MEDS ORDERED: PATIENT'S OWN MEDICATION (NON-FORMULARY) (Omeprazole Magnesium [Prilosec Otc] 20 MG Tablet PO SCH (12:45)
[2022-08-08] MEDS: PANTOPRAZOLE 20 MG TABLET PO PRN ×2 (13:11→21:02)
[2022-08-08] MEDS: GABAPENTIN 100 MG CAPSULE PO SCH ×2 (13:34→21:01)
[2022-08-08] MEDS: cloNIDine HCL 0.1 MG TABLET PO SCH ×3 (13:34→21:01)
[2022-08-08] MEDS: DOCUSATE SODIUM 100 MG CAPSULE (FP) PO PRN (18:57)
[2022-08-08] MEDS: MAGNESIUM HYDROX 2400MG/30ML ORAL SUSPENSION 30 ML CUP PO PRN (18:57)
[2022-08-08] MEDS: traZODone HCL 50 MG TABLET (FP) PO PRN (21:01)
[2022-08-08] MEDS: THIAMINE HCL 100 MG TABLET (FP) PO SCH (21:01)
[2022-08-08] MEDS: MELATONIN 5 MG TABLETS PO SCH (21:01)
[2022-08-09] MEDS: cloNIDine HCL 0.1 MG TABLET PO SCH ×3 (06:14→22:58)
[2022-08-09] MEDS: GABAPENTIN 100 MG CAPSULE PO SCH ×3 (06:14→22:58)
[2022-08-09] MEDS: NICOTINE 21 MG/24 HOURS TOPICAL PATCH TD PRN (06:16)
[2022-08-09] MEDS: POLYETHYLENE GLYCOL (HEALTHYLAX) 3350 17 GM PACKET PO PRN (09:08)
[2022-08-09] MEDS: PRENATAL VITAMINS W/ FOLIC ACID TABLET (FP) PO SCH (09:08)
[2022-08-09] MEDS: SERTRALINE HCL 50 MG TABLET (FP) PO SCH (09:08)
[2022-08-09] MEDS ORDERED: methaDONE HCL 40 MG DISPERSABLE TABLET PO SCH (10:00)
[2022-08-09 11:58] LABS: HIV INTERPRETATION NEGATIVE (NEGATIVE)
[2022-08-09] MEDS: PANTOPRAZOLE 20 MG TABLET PO PRN (13:08)
[2022-08-09] MEDS: hydrOXYzine PAMOATE 25 MG CAPSULE (FP) PO PRN (16:44)
[2022-08-09] MEDS: THIAMINE HCL 100 MG TABLET (FP) PO SCH (22:58)
[2022-08-09] MEDS: MELATONIN 5 MG TABLETS PO SCH (22:58)
[2022-08-10] MEDS: GABAPENTIN 100 MG CAPSULE PO SCH ×3 (06:19→21:02)
[2022-08-10] MEDS: hydrOXYzine PAMOATE 25 MG CAPSULE (FP) PO PRN ×3 (06:22→21:01)
[2022-08-10] MEDS: NICOTINE 21 MG/24 HOURS TOPICAL PATCH TD PRN (06:22)
[2022-08-10] MEDS: cloNIDine HCL 0.1 MG TABLET PO SCH ×4 (06:28→21:01)
[2022-08-10] MEDS: SERTRALINE HCL 50 MG TABLET (FP) PO SCH (09:30)
[2022-08-10] MEDS: PRENATAL VITAMINS W/ FOLIC ACID TABLET (FP) PO SCH (09:30)
[2022-08-10] MEDS: DOCUSATE SODIUM 100 MG CAPSULE (FP) PO PRN ×2 (13:29→21:01)
[2022-08-10] MEDS: THIAMINE HCL 100 MG TABLET (FP) PO SCH (21:01)
[2022-08-10] MEDS: traZODone HCL 50 MG TABLET (FP) PO PRN (21:02)
[2022-08-10] MEDS: MELATONIN 5 MG TABLETS PO SCH (21:02)
[2022-08-11] MEDS: GABAPENTIN 100 MG CAPSULE PO SCH ×3 (06:26→23:48)
[2022-08-11] MEDS: NICOTINE 21 MG/24 HOURS TOPICAL PATCH TD PRN (06:28)
[2022-08-11] MEDS: cloNIDine HCL 0.1 MG TABLET PO SCH (07:13)
[2022-08-11] MEDS: SERTRALINE HCL 50 MG TABLET (FP) PO SCH (09:36)
[2022-08-11] MEDS: PRENATAL VITAMINS W/ FOLIC ACID TABLET (FP) PO SCH (09:36)
[2022-08-11] MEDS: POLYETHYLENE GLYCOL (HEALTHYLAX) 3350 17 GM PACKET PO PRN (09:38)
[2022-08-11] MEDS: cloNIDine HCL 0.1 MG TABLET PO PRN ×2 (09:39→17:24)
[2022-08-11] MEDS: hydrOXYzine PAMOATE 25 MG CAPSULE (FP) PO PRN (15:13)
[2022-08-11] MEDS: THIAMINE HCL 100 MG TABLET (FP) PO SCH (23:48)
[2022-08-11] MEDS: MELATONIN 5 MG TABLETS PO SCH (23:48)
[2022-08-12] MEDS: GABAPENTIN 100 MG CAPSULE PO SCH ×3 (06:17→22:15)
[2022-08-12] MEDS: cloNIDine HCL 0.1 MG TABLET PO PRN ×2 (06:18→13:08)
[2022-08-12] MEDS: NICOTINE 21 MG/24 HOURS TOPICAL PATCH TD PRN (06:19)
[2022-08-12] MEDS: SERTRALINE HCL 50 MG TABLET (FP) PO SCH (09:24)
[2022-08-12] MEDS: PRENATAL VITAMINS W/ FOLIC ACID TABLET (FP) PO SCH (09:24)
[2022-08-12] MEDS: hydrOXYzine PAMOATE 25 MG CAPSULE (FP) PO PRN (09:24)
[2022-08-12] MEDS: MAGNESIUM HYDROX 2400MG/30ML ORAL SUSPENSION 30 ML CUP PO PRN (09:25)
[2022-08-12] MEDS ORDERED: PRENATAL VITAMINS W/ FOLIC ACID TABLET (FP) PO PRN (12:32)
[2022-08-12] MEDS: THIAMINE HCL 100 MG TABLET (FP) PO SCH (22:15)
[2022-08-12] MEDS: MELATONIN 5 MG TABLETS PO SCH (22:15)
[2022-08-13] MEDS: GABAPENTIN 100 MG CAPSULE PO SCH ×3 (05:57→22:39)
[2022-08-13] MEDS: NICOTINE 21 MG/24 HOURS TOPICAL PATCH TD PRN (06:00)
[2022-08-13] MEDS: SERTRALINE HCL 50 MG TABLET (FP) PO SCH (09:34)
[2022-08-13] MEDS: cloNIDine HCL 0.1 MG TABLET PO PRN ×2 (09:36→14:45)
[2022-08-13] MEDS: hydrOXYzine PAMOATE 25 MG CAPSULE (FP) PO PRN (09:36)
[2022-08-13] MEDS: THIAMINE HCL 100 MG TABLET (FP) PO SCH (22:39)
[2022-08-13] MEDS: MELATONIN 5 MG TABLETS PO SCH (22:39)
[2022-08-14] MEDS: GABAPENTIN 100 MG CAPSULE PO SCH ×3 (06:19→21:50)
[2022-08-14] MEDS: NICOTINE 21 MG/24 HOURS TOPICAL PATCH TD PRN (06:22)
[2022-08-14] MEDS: hydrOXYzine PAMOATE 25 MG CAPSULE (FP) PO PRN (09:35)
[2022-08-14] MEDS: cloNIDine HCL 0.1 MG TABLET PO PRN (09:35)
[2022-08-14] MEDS: SERTRALINE HCL 50 MG TABLET (FP) PO SCH (09:35)
[2022-08-14] MEDS: THIAMINE HCL 100 MG TABLET (FP) PO SCH (21:50)
[2022-08-14] MEDS: MELATONIN 5 MG TABLETS PO SCH (21:50)
[2022-08-15] MEDS: NICOTINE 21 MG/24 HOURS TOPICAL PATCH TD PRN (06:27)
[2022-08-15] MEDS: GABAPENTIN 100 MG CAPSULE PO SCH ×3 (06:28→21:56)
[2022-08-15] MEDS: cloNIDine HCL 0.1 MG TABLET PO PRN ×2 (07:45→13:31)
[2022-08-15] MEDS: hydrOXYzine PAMOATE 25 MG CAPSULE (FP) PO PRN (09:21)
[2022-08-15] MEDS: SERTRALINE HCL 50 MG TABLET (FP) PO SCH (09:21)
[2022-08-15] MEDS: MAG HYDROX/AL HYDROX/SIMETH 30 ML UNIT-DOSE CUP PO PRN (15:56)
[2022-08-15] MEDS: MELATONIN 5 MG TABLETS PO SCH (21:56)
[2022-08-15] MEDS: THIAMINE HCL 100 MG TABLET (FP) PO SCH (21:56)
[2022-08-16] MEDS: cloNIDine HCL 0.1 MG TABLET PO PRN ×2 (06:30→13:46)
[2022-08-16] MEDS: NICOTINE 21 MG/24 HOURS TOPICAL PATCH TD PRN (06:31)
[2022-08-16] MEDS: GABAPENTIN 100 MG CAPSULE PO SCH ×3 (06:37→21:49)
[2022-08-16 06:50] VITALS: RESP 16
[2022-08-16] MEDS: SERTRALINE HCL 50 MG TABLET (FP) PO SCH (09:51)
[2022-08-16] MEDS: POLYETHYLENE GLYCOL (HEALTHYLAX) 3350 17 GM PACKET PO PRN (09:54)
[2022-08-16] MEDS: hydrOXYzine PAMOATE 25 MG CAPSULE (FP) PO PRN (09:54)
[2022-08-16] MEDS: MAG HYDROX/AL HYDROX/SIMETH 30 ML UNIT-DOSE CUP PO PRN (11:36)
[2022-08-16] MEDS: MELATONIN 5 MG TABLETS PO SCH (21:49)
[2022-08-16] MEDS: THIAMINE HCL 100 MG TABLET (FP) PO SCH (21:49)
[2022-08-17 05:46] VITALS: BP 125/88; PULSE 62; TEMP 98.4
[2022-08-17] MEDS ORDERED: NICOTINE 21 MG/24 HOURS TOPICAL PATCH ONE (05:49)
[2022-08-17] MEDS: NICOTINE 21 MG/24 HOURS TOPICAL PATCH TD PRN (05:55)
[2022-08-17] MEDS: GABAPENTIN 100 MG CAPSULE PO SCH (05:59)
== END 2022-08-17 10:40 | disposition home or self-care (01) | DRG 772 ==
LOC: YASAS 10:14 → Y3E 10:15
PROVIDERS: ADMIT Allergy & Immunology; ATTEND Psychiatry & Neurology Pain Medicine
PROC: HZ42ZZZ Group Counseling for Substance Abuse Treatment, Cognitive-Behavioral (ICD-10-PCS; principal; 2022-08-08)
DX: F11.20 Opioid dependence, uncomplicated (principal); F14.20 Cocaine dependence, uncomplicated; F13.20 Sedative, hypnotic or anxiolytic dependence, uncomplicated; F17.210 Nicotine dependence, cigarettes, uncomplicated; F32.A Depression, unspecified; F41.9 Anxiety disorder, unspecified; I10 Essential (primary) hypertension; J45.909 Unspecified asthma, uncomplicated; R79.89 Other specified abnormal findings of blood chemistry; F91.8 Other conduct disorders; Y04.0XXA Assault by unarmed brawl or fight, initial encounter; Y92.238 Other place in hospital as the place of occurrence of the external cause; Z91.199 Patient's noncompliance with other medical treatment and regimen due to unspecified reason
CPT/HCPCS: 36415; 82140; 86803; 87389; 87522

== ENCOUNTER 2022-10-03 14:42 | Inpatient (IN) | payer OTHER ==
[2022-10-03 15:47] VITALS: BMI 29.7
[2022-10-03] MEDS ORDERED: BENZOCAINE/MENTHOL (CHLORASEPTIC ) LOZENGE MM PRN (18:45)
[2022-10-03] MEDS ORDERED: ACETAMINOPHEN 325 MG TABLET (FP) PO PRN (18:45)
[2022-10-03] MEDS ORDERED: IBUPROFEN 600 MG TABLET (FP) PO PRN (18:45)
[2022-10-03] MEDS ORDERED: LOPERAMIDE HCL 2 MG CAPSULE PO PRN (18:45)
[2022-10-03] MEDS ORDERED: NALOXONE HCL (KLOXXADO) 8 MG SPRAY NS PRN (18:45)
[2022-10-03] MEDS ORDERED: IBUPROFEN 400 MG TABLET (FP) PO PRN (18:45)
[2022-10-03] MEDS ORDERED: NALOXONE HCL 0.4 MG/ML VIAL IM PRN (18:45)
[2022-10-03] MEDS ORDERED: AMMONIUM LACTATE 12% LOTION 225 GM BOTTLE TP PRN (18:45)
[2022-10-03] MEDS ORDERED: guaiFENesin 600 MG TABLET.ER (FP) PO PRN (18:45)
[2022-10-03] MEDS ORDERED: BENZONATATE 200 MG CAPSULE PO PRN (18:45)
[2022-10-03] MEDS ORDERED: POLYETHYLENE GLYCOL (HEALTHYLAX) 3350 17 GM PACKET PO PRN (18:45)
[2022-10-03] MEDS ORDERED: NICOTINE POLACRILEX 2 MG GUM BUC PRN (18:59)
[2022-10-03] MEDS ORDERED: NICOTINE POLACRILEX 2 MG GUM ONE (21:17)
[2022-10-03] MEDS: COLLOIDAL OATMEAL 1 BAR EACH TP PRN (22:31)
[2022-10-03] MEDS: MAG HYDROX/AL HYDROX/SIMETH 30 ML UNIT-DOSE CUP PO PRN (22:52)
[2022-10-03] MEDS: MELATONIN 5 MG TABLETS PO SCH (23:13)
[2022-10-03] MEDS: THIAMINE HCL 100 MG TABLET (FP) PO SCH (23:13)
[2022-10-04] MEDS: hydrOXYzine PAMOATE 25 MG CAPSULE (FP) PO PRN ×2 (06:15→19:13)
[2022-10-04] MEDS ORDERED: ALBUTEROL SO4 HFA INHALER IH PRN (08:43)
[2022-10-04] MEDS ORDERED: methaDONE HCL 10 MG TABLET PO SCH (09:00)
[2022-10-04] MEDS: PRENATAL VITAMINS W/ FOLIC ACID TABLET (FP) PO SCH (09:18)
[2022-10-04] MEDS: NICOTINE 21 MG/24 HOURS TOPICAL PATCH TD SCH (09:18)
[2022-10-04] MEDS: cloNIDine HCL 0.1 MG TABLET PO SCH ×2 (13:05→21:10)
[2022-10-04] MEDS ORDERED: cloNIDine HCL 0.1 MG TABLET PO SCH (14:00)
[2022-10-04 14:25] LABS: PH,URINE 5.5 (5.0-8.0); URINE APPEARANCE CLEAR; URINE BILIRUBIN NEGATIVE (NEGATIVE); URINE COLOR YELLOW; URINE GLUCOSE (UA) NEGATIVE (NEGATIVE); URINE KETONE NEGATIVE (NEGATIVE); URINE LEUK ESTERASE NEGATIVE (NEGATIVE); URINE NITRITE NEGATIVE (NEGATIVE); URINE PROTEIN NEGATIVE (NEGATIVE); URINE UROBILINOGEN 0.2 mg/dL (0.2-1.0)
[2022-10-04] MEDS: MAGNESIUM HYDROX 2400MG/30ML ORAL SUSPENSION 30 ML CUP PO PRN (17:26)
[2022-10-04] MEDS: THIAMINE HCL 100 MG TABLET (FP) PO SCH (21:10)
[2022-10-04] MEDS: MELATONIN 5 MG TABLETS PO SCH (21:10)
[2022-10-04] MEDS: MAG HYDROX/AL HYDROX/SIMETH 30 ML UNIT-DOSE CUP PO PRN (22:26)
[2022-10-05] MEDS: cloNIDine HCL 0.1 MG TABLET PO SCH ×3 (06:10→23:05)
[2022-10-05] MEDS: NICOTINE 21 MG/24 HOURS TOPICAL PATCH TD SCH (09:02)
[2022-10-05] MEDS: PRENATAL VITAMINS W/ FOLIC ACID TABLET (FP) PO SCH (09:03)
[2022-10-05] MEDS: hydrOXYzine PAMOATE 25 MG CAPSULE (FP) PO PRN (10:11)
[2022-10-05] MEDS: MAGNESIUM HYDROX 2400MG/30ML ORAL SUSPENSION 30 ML CUP PO PRN (10:11)
[2022-10-05 11:04] LABS: HEMATOCRIT 36.8 % (35.4-49); HEMOGLOBIN 12.5 GM/dL (11.7-16.9); MCH 27.5 pg (25.7-33.7); MCHC 33.8 g/dl (32.0-35.9); MEAN CELL VOLUME 81.4 fl (80-96); MEAN PLT VOLUME 10.5 fl (7.5-11.1); PLATELET COUNT 179 10^3/uL (134-434); RBC 4.52 M/mm3 (4.00-5.60); RDW 15.1 % (11.9-15.9); WHITE BLOOD COUNT 5.1 K/mm3 (4.0-10.0)
[2022-10-05 11:22] LABS: POTASSIUM 4.7 mmol/L (3.5-5.1)
[2022-10-05 11:36] LABS: BLOOD UREA NITROGEN 16.2 mg/dL (7-18); CALCIUM 8.4 mg/dL (8.5-10.1)
[2022-10-05 11:37] LABS: ALBUMIN 3.9 g/dl (3.4-5.0)
[2022-10-05 11:40] LABS: CREATININE 1.1 mg/dL (0.55-1.3)
[2022-10-05 11:41] LABS: TOT PROT 7.3 g/dl (6.4-8.2)
[2022-10-05 11:42] LABS: BILIRUBIN,TOTAL 0.4 mg/dL (0.2-1)
[2022-10-05] MEDS: DOCUSATE SODIUM 100 MG CAPSULE (FP) PO SCH ×2 (12:06→23:04)
[2022-10-05] MEDS ORDERED: SENNOSIDES 8.6MG TABLET (FP) PO SCH ×2 (22:00)
[2022-10-05] MEDS: MELATONIN 5 MG TABLETS PO SCH (23:04)
[2022-10-05] MEDS: THIAMINE HCL 100 MG TABLET (FP) PO SCH (23:04)
[2022-10-05] MEDS: SENNOSIDES 8.6MG TABLET (FP) PO SCH (23:04)
[2022-10-06] MEDS: cloNIDine HCL 0.1 MG TABLET PO SCH ×3 (05:58→21:31)
[2022-10-06] MEDS ORDERED: methaDONE HCL 40 MG DISPERSABLE TABLET PO SCH (06:00)
[2022-10-06] MEDS: NICOTINE 21 MG/24 HOURS TOPICAL PATCH TD SCH (08:59)
[2022-10-06] MEDS: PRENATAL VITAMINS W/ FOLIC ACID TABLET (FP) PO SCH (08:59)
[2022-10-06] MEDS: DOCUSATE SODIUM 100 MG CAPSULE (FP) PO SCH ×2 (08:59→21:31)
[2022-10-06] MEDS: MAGNESIUM HYDROX 2400MG/30ML ORAL SUSPENSION 30 ML CUP PO PRN (09:01)
[2022-10-06] MEDS: hydrOXYzine PAMOATE 25 MG CAPSULE (FP) PO PRN (10:01)
[2022-10-06] MEDS: MAG HYDROX/AL HYDROX/SIMETH 30 ML UNIT-DOSE CUP PO PRN (13:39)
[2022-10-06] MEDS: SENNOSIDES 8.6MG TABLET (FP) PO SCH (21:32)
[2022-10-06] MEDS: THIAMINE HCL 100 MG TABLET (FP) PO SCH (21:32)
[2022-10-06] MEDS: MELATONIN 5 MG TABLETS PO SCH (21:32)
[2022-10-07] MEDS: cloNIDine HCL 0.1 MG TABLET PO SCH ×3 (06:13→23:00)
[2022-10-07] MEDS: DOCUSATE SODIUM 100 MG CAPSULE (FP) PO SCH ×2 (09:49→23:00)
[2022-10-07] MEDS: PRENATAL VITAMINS W/ FOLIC ACID TABLET (FP) PO SCH (09:49)
[2022-10-07] MEDS: hydrOXYzine PAMOATE 25 MG CAPSULE (FP) PO PRN (09:49)
[2022-10-07] MEDS: NICOTINE 21 MG/24 HOURS TOPICAL PATCH TD SCH (09:49)
[2022-10-07] MEDS: MAG HYDROX/AL HYDROX/SIMETH 30 ML UNIT-DOSE CUP PO PRN (12:10)
[2022-10-07] MEDS: MELATONIN 5 MG TABLETS PO SCH (23:00)
[2022-10-07] MEDS: THIAMINE HCL 100 MG TABLET (FP) PO SCH (23:01)
[2022-10-07] MEDS: SENNOSIDES 8.6MG TABLET (FP) PO SCH (23:01)
[2022-10-08] MEDS: cloNIDine HCL 0.1 MG TABLET PO SCH ×3 (06:06→23:02)
[2022-10-08] MEDS: COLLOIDAL OATMEAL 1 BAR EACH TP PRN (06:06)
[2022-10-08] MEDS: DOCUSATE SODIUM 100 MG CAPSULE (FP) PO SCH ×2 (09:31→23:02)
[2022-10-08] MEDS: NICOTINE 21 MG/24 HOURS TOPICAL PATCH TD SCH (09:31)
[2022-10-08] MEDS: PRENATAL VITAMINS W/ FOLIC ACID TABLET (FP) PO SCH (09:31)
[2022-10-08] MEDS: hydrOXYzine PAMOATE 25 MG CAPSULE (FP) PO PRN ×2 (09:31→18:31)
[2022-10-08] MEDS: MAG HYDROX/AL HYDROX/SIMETH 30 ML UNIT-DOSE CUP PO PRN (09:32)
[2022-10-08] MEDS: THIAMINE HCL 100 MG TABLET (FP) PO SCH (23:03)
[2022-10-08] MEDS: MELATONIN 5 MG TABLETS PO SCH (23:03)
[2022-10-08] MEDS: SENNOSIDES 8.6MG TABLET (FP) PO SCH (23:03)
[2022-10-09] MEDS: cloNIDine HCL 0.1 MG TABLET PO SCH ×3 (06:11→21:30)
[2022-10-09] MEDS: hydrOXYzine PAMOATE 25 MG CAPSULE (FP) PO PRN ×2 (06:49→19:01)
[2022-10-09] MEDS: PRENATAL VITAMINS W/ FOLIC ACID TABLET (FP) PO SCH (09:28)
[2022-10-09] MEDS: DOCUSATE SODIUM 100 MG CAPSULE (FP) PO SCH ×2 (09:28→21:30)
[2022-10-09] MEDS: NICOTINE 21 MG/24 HOURS TOPICAL PATCH TD SCH (09:28)
[2022-10-09] MEDS: MAGNESIUM HYDROX 2400MG/30ML ORAL SUSPENSION 30 ML CUP PO PRN (09:29)
[2022-10-09] MEDS: MELATONIN 5 MG TABLETS PO SCH (21:30)
[2022-10-09] MEDS: THIAMINE HCL 100 MG TABLET (FP) PO SCH (21:30)
[2022-10-09] MEDS: SENNOSIDES 8.6MG TABLET (FP) PO SCH (21:30)
[2022-10-10] MEDS: cloNIDine HCL 0.1 MG TABLET PO SCH ×4 (06:18→21:36)
[2022-10-10] MEDS ORDERED: PRENATAL VITAMINS W/ FOLIC ACID TABLET (FP) PO PRN (08:34)
[2022-10-10] MEDS: DOCUSATE SODIUM 100 MG CAPSULE (FP) PO SCH ×2 (09:49→21:37)
[2022-10-10] MEDS: hydrOXYzine PAMOATE 25 MG CAPSULE (FP) PO PRN (09:49)
[2022-10-10] MEDS: NICOTINE 21 MG/24 HOURS TOPICAL PATCH TD SCH (09:49)
[2022-10-10] MEDS: SENNOSIDES 8.6MG TABLET (FP) PO SCH (21:37)
[2022-10-10] MEDS: MELATONIN 5 MG TABLETS PO SCH (21:37)
[2022-10-10] MEDS: THIAMINE HCL 100 MG TABLET (FP) PO SCH (21:37)
[2022-10-11] MEDS: methaDONE HCL 40 MG DISPERSABLE TABLET PO SCH (06:08)
[2022-10-11] MEDS: hydrOXYzine PAMOATE 25 MG CAPSULE (FP) PO PRN ×2 (06:31→22:24)
[2022-10-11] MEDS: DOCUSATE SODIUM 100 MG CAPSULE (FP) PO SCH ×2 (09:30→22:29)
[2022-10-11] MEDS: NICOTINE 21 MG/24 HOURS TOPICAL PATCH TD PRN (09:31)
[2022-10-11] MEDS: cloNIDine HCL 0.1 MG TABLET PO SCH ×2 (13:01→22:28)
[2022-10-11] MEDS: MELATONIN 5 MG TABLETS PO SCH (22:29)
[2022-10-11] MEDS: THIAMINE HCL 100 MG TABLET (FP) PO SCH (22:29)
[2022-10-11] MEDS: SENNOSIDES 8.6MG TABLET (FP) PO SCH (22:29)
[2022-10-12] MEDS: cloNIDine HCL 0.1 MG TABLET PO SCH ×2 (06:20→13:03)
[2022-10-12] MEDS: methaDONE HCL 40 MG DISPERSABLE TABLET PO SCH (06:20)
[2022-10-12 06:50] VITALS: TEMP 97.7
[2022-10-12 09:01] VITALS: RESP 18
[2022-10-12] MEDS: DOCUSATE SODIUM 100 MG CAPSULE (FP) PO SCH (09:52)
[2022-10-12] MEDS: NICOTINE 21 MG/24 HOURS TOPICAL PATCH TD PRN (09:52)
[2022-10-12] MEDS: COLLOIDAL OATMEAL 1 BAR EACH TP PRN (09:53)
[2022-10-12 13:06] VITALS: BP 117/80; PULSE 81
== END 2022-10-12 15:52 | disposition home or self-care (01) | DRG 772 ==
LOC: YASAS 14:42 → Y3W 19:20 → Y3E 10-06 13:21
PROVIDERS: ADMIT Allergy & Immunology; ATTEND Psychiatry & Neurology Pain Medicine
PROC: HZ42ZZZ Group Counseling for Substance Abuse Treatment, Cognitive-Behavioral (ICD-10-PCS; principal; 2022-10-03)
DX: F10.20 Alcohol dependence, uncomplicated (principal); F11.20 Opioid dependence, uncomplicated; F14.20 Cocaine dependence, uncomplicated; F17.210 Nicotine dependence, cigarettes, uncomplicated; F41.9 Anxiety disorder, unspecified; I10 Essential (primary) hypertension; J45.20 Mild intermittent asthma, uncomplicated; K21.9 Gastro-esophageal reflux disease without esophagitis; Z86.59 Personal history of other mental and behavioral disorders; Z88.0 Allergy status to penicillin; Z88.5 Allergy status to narcotic agent; Z88.6 Allergy status to analgesic agent
CPT/HCPCS: 36415; 80053; 81003; 85027; 86780; 87635

== ENCOUNTER 2023-02-22 12:10 | Inpatient (IN) | payer OTHER ==
[2023-02-22 12:43] VITALS: BMI 25.0
[2023-02-22] MEDS ORDERED: POLYETHYLENE GLYCOL (HEALTHYLAX) 3350 17 GM PACKET PO PRN (13:18)
[2023-02-22] MEDS ORDERED: NALOXONE HCL (KLOXXADO) 8 MG SPRAY NS PRN (13:18)
[2023-02-22] MEDS ORDERED: guaiFENesin 600 MG TABLET.ER (FP) PO PRN (13:18)
[2023-02-22] MEDS ORDERED: BISMUTH SUBSALICYLATE 524 MG/30 ML PO PRN (13:18)
[2023-02-22] MEDS ORDERED: IBUPROFEN 400 MG TABLET (FP) PO PRN (13:18)
[2023-02-22] MEDS ORDERED: BENZONATATE 200 MG CAPSULE PO PRN (13:18)
[2023-02-22] MEDS ORDERED: NALOXONE HCL 0.4 MG/ML VIAL IM PRN (13:18)
[2023-02-22] MEDS ORDERED: BENZOCAINE/MENTHOL (CHLORASEPTIC ) LOZENGE MM PRN (13:18)
[2023-02-22] MEDS ORDERED: MAGNESIUM HYDROX 2400MG/30ML ORAL SUSPENSION 30 ML CUP PO PRN (13:18)
[2023-02-22] MEDS ORDERED: hydrOXYzine PAMOATE 25 MG CAPSULE (FP) PO PRN (13:18)
[2023-02-22] MEDS ORDERED: LOPERAMIDE HCL 2 MG CAPSULE PO PRN (13:18)
[2023-02-22] MEDS ORDERED: MAG HYDROX/AL HYDROX/SIMETH 30 ML UNIT-DOSE CUP PO PRN (13:18)
[2023-02-22] MEDS ORDERED: DICYCLOMINE HCL 10 MG CAPSULE PO PRN (13:18)
[2023-02-22] MEDS: methaDONE HCL 10 MG TABLET (FOR DETOX USE ONLY) PO ONE (13:46)
[2023-02-22] MEDS: PRENATAL VITAMINS W/ FOLIC ACID TABLET (FP) PO SCH (13:47)
[2023-02-22] MEDS: METHOCARBAMOL 500 MG TABLET PO PRN (13:47)
[2023-02-22] MEDS: NICOTINE 21 MG/24 HOURS TOPICAL PATCH TD SCH (13:47)
[2023-02-22] MEDS ORDERED: NICOTINE 21 MG/24 HOURS TOPICAL PATCH ONE (13:58)
[2023-02-22] MEDS: IBUPROFEN 600 MG TABLET (FP) PO PRN (16:07)
[2023-02-22] MEDS: ACETAMINOPHEN 325 MG TABLET (FP) PO PRN (17:45)
[2023-02-22] MEDS: cloNIDine HCL 0.1 MG TABLET PO PRN (17:50)
[2023-02-22 21:16] VITALS: PULSE 76
[2023-02-22] MEDS: MELATONIN 5 MG TABLETS PO SCH (22:47)
[2023-02-22] MEDS: THIAMINE HCL 100 MG TABLET (FP) PO SCH (22:47)
[2023-02-22] MEDS: ONDANSETRON *ODT* 4 MG TABLET SL PRN (23:09)
[2023-02-23] MEDS ORDERED: ALBUTEROL SO4 HFA INHALER IH PRN (07:16)
[2023-02-23] MEDS ORDERED: traZODone HCL 50 MG TABLET (FP) PO PRN (07:16)
[2023-02-23] MEDS: PANTOPRAZOLE 20 MG TABLET PO SCH (09:18)
[2023-02-23 09:43] VITALS: BP 110/69; RESP 20; TEMP 98.6
[2023-02-23] MEDS ORDERED: diazePAM 5 MG TABLET PO PRN (11:32)
[2023-02-23] MEDS ORDERED: cloNIDine HCL 0.1 MG TABLET PO SCH (14:00)
[2023-02-23] MEDS ORDERED: GABAPENTIN 100 MG CAPSULE PO SCH (14:00)
[2023-02-23] MEDS ORDERED: diazePAM 5 MG TABLET PO SCH (17:00)
[2023-02-24] MEDS ORDERED: methaDONE HCL 10 MG TABLET (FOR DETOX USE ONLY) PO ONE (10:00)
[2023-02-25] MEDS ORDERED: diazePAM 5 MG TABLET PO SCH (06:00)
[2023-02-26] MEDS ORDERED: diazePAM 5 MG TABLET PO SCH (06:00)
[2023-02-26] MEDS ORDERED: methaDONE HCL 10 MG TABLET (FOR DETOX USE ONLY) PO ONE (10:00)
[2023-02-27] MEDS ORDERED: diazePAM 5 MG TABLET PO ONE (06:00)
== END 2023-02-23 12:12 | disposition left against medical advice (07) | DRG 770 ==
LOC: YASAS 12:10 → Y3N 13:59
PROVIDERS: ADMIT Allergy & Immunology; ATTEND Surgery
PROC: HZ2ZZZZ Detoxification Services for Substance Abuse Treatment (ICD-10-PCS; principal; 2023-02-22)
DX: F11.23 Opioid dependence with withdrawal (principal); F10.230 Alcohol dependence with withdrawal, uncomplicated; F14.20 Cocaine dependence, uncomplicated; F12.20 Cannabis dependence, uncomplicated; F17.210 Nicotine dependence, cigarettes, uncomplicated; F41.8 Other specified anxiety disorders; I10 Essential (primary) hypertension; J45.20 Mild intermittent asthma, uncomplicated; K21.9 Gastro-esophageal reflux disease without esophagitis; R93.41 Abnormal radiologic findings on diagnostic imaging of renal pelvis, ureter, or bladder; Z88.0 Allergy status to penicillin; Z88.5 Allergy status to narcotic agent; Z88.6 Allergy status to analgesic agent
CPT/HCPCS: 87635; 93005; 93010; Q0162

== ENCOUNTER 2023-06-14 22:51 | Inpatient (IN) | payer OTHER ==
[2023-06-14 23:16] VITALS: BMI 25.9
[2023-06-15] MEDS ORDERED: POLYETHYLENE GLYCOL (HEALTHYLAX) 3350 17 GM PACKET PO PRN (00:04)
[2023-06-15] MEDS ORDERED: ONDANSETRON *ODT* 4 MG TABLET SL PRN (00:04)
[2023-06-15] MEDS ORDERED: BENZONATATE 200 MG CAPSULE PO PRN (00:04)
[2023-06-15] MEDS ORDERED: LOPERAMIDE HCL 2 MG CAPSULE PO PRN (00:04)
[2023-06-15] MEDS ORDERED: DICYCLOMINE HCL 10 MG CAPSULE PO PRN (00:04)
[2023-06-15] MEDS ORDERED: MAG HYDROX/AL HYDROX/SIMETH 30 ML UNIT-DOSE CUP PO PRN (00:04)
[2023-06-15] MEDS ORDERED: ACETAMINOPHEN 325 MG TABLET (FP) PO PRN (00:04)
[2023-06-15] MEDS ORDERED: MAGNESIUM HYDROX 2400MG/30ML ORAL SUSPENSION 30 ML CUP PO PRN (00:04)
[2023-06-15] MEDS ORDERED: guaiFENesin 600 MG TABLET.ER (FP) PO PRN (00:04)
[2023-06-15] MEDS ORDERED: NICOTINE POLACRILEX 2 MG LOZENGE BC PRN (00:04)
[2023-06-15] MEDS: levETIRAcetam 500 MG TABLET (FP) PO SCH (00:50)
[2023-06-15] MEDS: BENZOCAINE/MENTHOL (CHLORASEPTIC ) LOZENGE MM PRN (01:46)
[2023-06-15] MEDS ORDERED: NICOTINE POLACRILEX 2 MG GUM ONE (01:47)
[2023-06-15] MEDS: NICOTINE POLACRILEX 2 MG GUM BUC PRN (01:48)
[2023-06-15] MEDS: hydrOXYzine PAMOATE 25 MG CAPSULE (FP) PO PRN (02:43)
[2023-06-15] MEDS: METHOCARBAMOL 500 MG TABLET PO PRN (02:43)
[2023-06-15] MEDS: diazePAM 5 MG TABLET PO ONE (07:18)
[2023-06-15] MEDS: methaDONE 40 MG, methaDONE 20 MG PO SCH (08:06)
[2023-06-15] MEDS: NICOTINE 14 MG/24 HOURS TOPICAL PATCH TD ONE (08:31)
[2023-06-15] MEDS: methaDONE HCL 10 MG TABLET PO SCH (08:36)
[2023-06-15] MEDS ORDERED: ALBUTEROL SO4 HFA INHALER IH PRN (08:42)
[2023-06-15] MEDS ORDERED: NICOTINE 14 MG/24 HOURS TOPICAL PATCH TD SCH ×2 (10:00)
[2023-06-15] MEDS: LORazepam 2 MG TABLET PO SCH (10:28)
[2023-06-15] MEDS: FAMOTIDINE 20 MG TABLET PO SCH (10:28)
[2023-06-15] MEDS: PRENATAL VITAMINS W/ FOLIC ACID TABLET (FP) PO SCH (10:28)
[2023-06-15] MEDS: LORazepam 1 MG TABLET PO PRN (13:40)
[2023-06-15] MEDS: THIAMINE HCL 100 MG TABLET (FP) PO SCH (22:12)
[2023-06-15] MEDS: MELATONIN 5 MG TABLETS PO SCH (22:12)
[2023-06-15] MEDS: amLODIPine BESYLATE 2.5 MG TABLET (FP) PO ONE (22:12)
[2023-06-16] MEDS: NICOTINE 21 MG/24 HOURS TOPICAL PATCH TD SCH (09:17)
[2023-06-16] MEDS ORDERED: NICOTINE 14 MG/24 HOURS TOPICAL PATCH TD SCH (10:00)
[2023-06-16 11:28] LABS: HEMOGLOBIN 9.9 GM/dL (11.7-16.9); MCH 25.1 pg (25.7-33.7); MEAN CELL VOLUME 76.1 fl (80-96); MEAN PLT VOLUME 9.3 fl (7.5-11.1); PLATELET COUNT 232 10^3/uL (134-434); RBC 3.94 M/mm3 (4.00-5.60); WHITE BLOOD COUNT 4.1 K/mm3 (4.0-10.0)
[2023-06-16 11:50] LABS: CALCIUM 8.2 mg/dL (8.5-10.1)
[2023-06-16 12:09] LABS: CREATININE 0.8 mg/dL (0.55-1.3)
[2023-06-16 12:11] LABS: TOT PROT 6.9 g/dl (6.4-8.2)
[2023-06-16 12:30] LABS: ALBUMIN 3.3 g/dl (3.4-5.0); POTASSIUM 4.1 mmol/L (3.5-5.1)
[2023-06-16 12:36] LABS: BILIRUBIN,TOTAL 0.1 mg/dL (0.2-1)
[2023-06-16 21:41] VITALS: RESP 16
[2023-06-17] MEDS: LORazepam 1 MG TABLET PO SCH (05:43)
[2023-06-17 10:05] VITALS: BP 137/88; PULSE 75; TEMP 97.7
[2023-06-18] MEDS ORDERED: LORazepam 0.5 MG TABLET PO PRN
[2023-06-18] MEDS ORDERED: LORazepam 0.5 MG TABLET PO SCH (05:00)
[2023-06-19] MEDS ORDERED: LORazepam 0.5 MG TABLET PO ONE (05:00)
== END 2023-06-17 11:38 | disposition left against medical advice (07) | DRG 770 ==
LOC: YASAS 22:51 → Y6N 06-15 02:09
PROVIDERS: ADMIT Allergy & Immunology; ATTEND Allergy & Immunology
PROC: HZ2ZZZZ Detoxification Services for Substance Abuse Treatment (ICD-10-PCS; principal; 2023-06-15)
DX: F10.230 Alcohol dependence with withdrawal, uncomplicated (principal); F11.20 Opioid dependence, uncomplicated; F14.20 Cocaine dependence, uncomplicated; F13.20 Sedative, hypnotic or anxiolytic dependence, uncomplicated; F17.210 Nicotine dependence, cigarettes, uncomplicated; F33.1 Major depressive disorder, recurrent, moderate; F19.282 Other psychoactive substance dependence with psychoactive substance-induced sleep disorder; F19.280 Other psychoactive substance dependence with psychoactive substance-induced anxiety disorder; I10 Essential (primary) hypertension; J45.20 Mild intermittent asthma, uncomplicated; K21.9 Gastro-esophageal reflux disease without esophagitis; Z62.810 Personal history of physical and sexual abuse in childhood; Z63.8 Other specified problems related to primary support group; Z86.19 Personal history of other infectious and parasitic diseases; Z88.0 Allergy status to penicillin; Z88.8 Allergy status to other drugs, medicaments and biological substances
CPT/HCPCS: 36415; 80053; 82140; 85027; 86780; 93005; 93010

== ENCOUNTER 2023-11-12 12:06 | Inpatient (IN) | payer OTHER ==
[2023-11-12 12:37] VITALS: BMI 23.5
[2023-11-12] MEDS ORDERED: DICYCLOMINE HCL 10 MG CAPSULE PO PRN (13:36)
[2023-11-12] MEDS ORDERED: BENZONATATE 200 MG CAPSULE PO PRN (13:36)
[2023-11-12] MEDS ORDERED: NALOXONE (NARCAN) HCL 4 MG/0.1 ML SPRAY NS PRN (13:36)
[2023-11-12] MEDS ORDERED: ACETAMINOPHEN 325 MG TABLET (FP) PO PRN (13:36)
[2023-11-12] MEDS ORDERED: IBUPROFEN 400 MG TABLET (FP) PO PRN (13:36)
[2023-11-12] MEDS ORDERED: MAGNESIUM HYDROX 2400MG/30ML ORAL SUSPENSION 30 ML CUP PO PRN (13:36)
[2023-11-12] MEDS ORDERED: BISMUTH SUBSALICYLATE 524 MG/30 ML PO PRN (13:36)
[2023-11-12] MEDS ORDERED: ONDANSETRON *ODT* 4 MG TABLET SL PRN (13:36)
[2023-11-12] MEDS ORDERED: NALOXONE HCL 0.4 MG/ML VIAL IM PRN (13:36)
[2023-11-12] MEDS ORDERED: LOPERAMIDE HCL 2 MG CAPSULE PO PRN (13:36)
[2023-11-12] MEDS ORDERED: guaiFENesin 600 MG TABLET.ER (FP) PO PRN (13:36)
[2023-11-12] MEDS ORDERED: cloNIDine HCL 0.1 MG TABLET PO PRN (13:36)
[2023-11-12] MEDS ORDERED: BENZOCAINE/MENTHOL (CHLORASEPTIC ) LOZENGE MM PRN (13:36)
[2023-11-12] MEDS ORDERED: POLYETHYLENE GLYCOL (HEALTHYLAX) 3350 17 GM PACKET PO PRN (13:36)
[2023-11-12] MEDS ORDERED: ALBUTEROL SO4 HFA INHALER IH PRN (13:46)
[2023-11-12] MEDS ORDERED: methaDONE HCL 10 MG TABLET (FOR DETOX USE ONLY) ONE (13:58)
[2023-11-12] MEDS ORDERED: NICOTINE 21 MG/24 HOURS TOPICAL PATCH ONE (14:05)
[2023-11-12] MEDS: methaDONE HCL 10 MG TABLET (FOR DETOX USE ONLY) PO ONE (14:08)
[2023-11-12] MEDS: NICOTINE 21 MG/24 HOURS TOPICAL PATCH TD SCH (14:09)
[2023-11-12] MEDS: diazePAM 5 MG TABLET PO PRN (14:43)
[2023-11-12] MEDS: diazePAM 5 MG TABLET PO SCH (17:28)
[2023-11-12] MEDS: THIAMINE 100 MG TABLET PO SCH (22:24)
[2023-11-12] MEDS: MELATONIN 5 MG TABLETS PO SCH (22:24)
[2023-11-13] MEDS ORDERED: methaDONE HCL 10 MG TABLET PO ONE (09:19)
[2023-11-13] MEDS: PRENATAL VITAMINS W/ FOLIC ACID TABLET (FP) PO SCH (09:31)
[2023-11-13] MEDS ORDERED: NICOTINE 21 MG/24 HOURS TOPICAL PATCH TD SCH (10:00)
[2023-11-13] MEDS: MAG HYDROX/AL HYDROX/SIMETH 30 ML UNIT-DOSE CUP PO PRN (10:37)
[2023-11-13] MEDS: METHOCARBAMOL 500 MG TABLET PO PRN (13:52)
[2023-11-14] MEDS: diazePAM 5 MG TABLET PO SCH (05:44)
[2023-11-14] MEDS: NICOTINE POLACRILEX 4 MG GUM BUC PRN (06:14)
[2023-11-14] MEDS: IBUPROFEN 600 MG TABLET (FP) PO PRN (09:34)
[2023-11-14] MEDS ORDERED: methaDONE HCL 10 MG TABLET (FOR DETOX USE ONLY) PO ONE (10:00)
[2023-11-14] MEDS: NICOTINE 21 MG/24 HOURS TOPICAL PATCH TD SCH (14:56)
[2023-11-14] MEDS: GABAPENTIN 300 MG CAPSULE PO SCH (14:57)
[2023-11-14 14:59] LABS: HEMATOCRIT 38.4 % (35.4-49); HEMOGLOBIN 12.3 GM/dL (11.7-16.9); MCH 25.6 pg (25.7-33.7); MCHC 32.2 g/dl (32.0-35.9); MEAN CELL VOLUME 79.5 fl (80-96); MEAN PLT VOLUME 9.7 fl (7.5-11.1); PLATELET COUNT 234 10^3/uL (134-434); RBC 4.83 M/mm3 (4.00-5.60); RDW 15.7 % (11.9-15.9); WHITE BLOOD COUNT 4.8 K/mm3 (4.0-10.0)
[2023-11-14] MEDS: QUEtiapine FUMARATE 50 MG TABLET PO SCH (23:21)
[2023-11-15] MEDS: diazePAM 5 MG TABLET PO SCH (05:51)
[2023-11-15] MEDS ORDERED: methaDONE HCL 10 MG TABLET PO SCH (06:00)
[2023-11-15] MEDS: methaDONE 80 MG, methaDONE 20 MG PO SCH (06:09)
[2023-11-15] MEDS: PANTOPRAZOLE 40 MG TABLET PO SCH (12:30)
[2023-11-15 14:31] LABS: POTASSIUM 4.2 mmol/L (3.5-5.1)
[2023-11-15 14:33] LABS: CALCIUM 9.1 mg/dL (8.5-10.1)
[2023-11-15 14:34] LABS: ALBUMIN 3.7 g/dl (3.4-5.0); BLOOD UREA NITROGEN 15.5 mg/dL (7-18)
[2023-11-15 14:37] LABS: CREATININE 0.8 mg/dL (0.55-1.3)
[2023-11-15 14:39] LABS: BILIRUBIN,TOTAL 0.2 mg/dL (0.2-1); TOT PROT 7.3 g/dl (6.4-8.2)
[2023-11-16] MEDS: diazePAM 5 MG TABLET PO ONE (05:31)
[2023-11-16] MEDS ORDERED: methaDONE HCL 10 MG TABLET (FOR DETOX USE ONLY) PO ONE (10:00)
[2023-11-16] MEDS: diazePAM 5 MG TABLET PO SCH (11:05)
[2023-11-17] MEDS: NICOTINE 14 MG/24 HOURS TOPICAL PATCH TD ONE (07:52)
[2023-11-17 09:14] VITALS: BP 111/74; PULSE 78; RESP 18; TEMP 97.8
[2023-11-17] MEDS: hydrOXYzine PAMOATE 25 MG CAPSULE (FP) PO PRN (09:47)
== END 2023-11-17 10:39 | disposition home or self-care (01) | DRG 773 ==
LOC: YASAS 12:06 → Y6N 14:05
PROVIDERS: ADMIT Surgery; ATTEND Surgery
PROC: HZ2ZZZZ Detoxification Services for Substance Abuse Treatment (ICD-10-PCS; principal; 2023-11-12)
DX: F11.23 Opioid dependence with withdrawal (principal); F10.230 Alcohol dependence with withdrawal, uncomplicated; F14.20 Cocaine dependence, uncomplicated; F17.210 Nicotine dependence, cigarettes, uncomplicated; F19.282 Other psychoactive substance dependence with psychoactive substance-induced sleep disorder; F19.280 Other psychoactive substance dependence with psychoactive substance-induced anxiety disorder; F33.1 Major depressive disorder, recurrent, moderate; F41.8 Other specified anxiety disorders; G47.00 Insomnia, unspecified; J45.20 Mild intermittent asthma, uncomplicated; K21.9 Gastro-esophageal reflux disease without esophagitis; Z88.0 Allergy status to penicillin; Z88.6 Allergy status to analgesic agent; Z88.8 Allergy status to other drugs, medicaments and biological substances
CPT/HCPCS: 36415; 80053; 80305; 80307; 85027; 86780; 93005; 93010

== ENCOUNTER 2024-02-07 22:35 | Inpatient (IN) | payer OTHER ==
[2024-02-07 23:01] VITALS: BMI 23.9
[2024-02-08] MEDS ORDERED: LOPERAMIDE HCL 2 MG CAPSULE PO PRN (00:55)
[2024-02-08] MEDS ORDERED: BENZOCAINE/MENTHOL (CHLORASEPTIC ) LOZENGE MM PRN (00:55)
[2024-02-08] MEDS ORDERED: guaiFENesin 600 MG TABLET.ER (FP) PO PRN (00:55)
[2024-02-08] MEDS ORDERED: MAGNESIUM HYDROX 2400MG/30ML ORAL SUSPENSION 30 ML CUP PO PRN (00:55)
[2024-02-08] MEDS ORDERED: BENZONATATE 200 MG CAPSULE PO PRN (00:55)
[2024-02-08] MEDS ORDERED: POLYETHYLENE GLYCOL (HEALTHYLAX) 3350 17 GM PACKET PO PRN (00:55)
[2024-02-08] MEDS: NICOTINE POLACRILEX 2 MG GUM BUC PRN (01:49)
[2024-02-08] MEDS: hydrOXYzine PAMOATE 25 MG CAPSULE (FP) PO PRN (01:49)
[2024-02-08] MEDS: methaDONE 80 MG, methaDONE 10 MG PO ONE (09:31)
[2024-02-08] MEDS: PRENATAL VITAMINS W/ FOLIC ACID TABLET (FP) PO SCH (09:32)
[2024-02-08] MEDS: NICOTINE 21 MG/24 HOURS TOPICAL PATCH TD SCH (09:32)
[2024-02-08] MEDS: SERTRALINE HCL 50 MG TABLET (FP) PO SCH (09:32)
[2024-02-08] MEDS: QUEtiapine FUMARATE 50 MG TABLET PO SCH (09:32)
[2024-02-08] MEDS ORDERED: NICOTINE 14 MG/24 HOURS TOPICAL PATCH TD SCH (10:00)
[2024-02-08] MEDS: GABAPENTIN 100 MG CAPSULE PO SCH (14:00)
[2024-02-08] MEDS: THIAMINE 100 MG TABLET PO SCH (21:25)
[2024-02-08] MEDS: MELATONIN 5 MG TABLETS PO SCH (21:26)
[2024-02-08 21:38] LABS: HIV INTERPRETATION NEGATIVE (NEGATIVE)
[2024-02-09] MEDS ORDERED: methaDONE HCL 40 MG DISPERSABLE TABLET PO SCH (06:00)
[2024-02-09] MEDS: methaDONE 80 MG, methaDONE 10 MG PO SCH (06:28)
[2024-02-09 11:44] LABS: URINE APPEARANCE CLEAR; URINE BILIRUBIN NEGATIVE (NEGATIVE); URINE COLOR YELLOW; URINE GLUCOSE (UA) NEGATIVE (NEGATIVE); URINE KETONE TRACE (NEGATIVE); URINE LEUK ESTERASE NEGATIVE (NEGATIVE); URINE NITRITE NEGATIVE (NEGATIVE); URINE PROTEIN NEGATIVE (NEGATIVE); URINE UROBILINOGEN 0.2 mg/dL (0.2-1.0)
[2024-02-09 16:11] LABS: ALBUMIN 3.2 g/dl (3.4-5.0); CALCIUM 8.3 mg/dL (8.5-10.1)
[2024-02-09 16:12] LABS: BLOOD UREA NITROGEN 11.2 mg/dL (7-18)
[2024-02-09 16:14] LABS: BILIRUBIN,TOTAL 0.2 mg/dL (0.2-1)
[2024-02-09 16:15] LABS: CREATININE 0.7 mg/dL (0.55-1.3)
[2024-02-09 16:16] LABS: TOT PROT 6.4 g/dl (6.4-8.2)
[2024-02-09 16:19] LABS: HEMATOCRIT 35.7 % (35.4-49); HEMOGLOBIN 11.2 GM/dL (11.7-16.9); MCHC 31.4 g/dl (32.0-35.9); MEAN CELL VOLUME 76.4 fl (80-96); MEAN PLT VOLUME 9.2 fl (7.5-11.1); PLATELET COUNT 225 10^3/uL (134-434); RBC 4.67 M/mm3 (4.00-5.60); RDW 17.2 % (11.9-15.9); WHITE BLOOD COUNT 4.8 K/mm3 (4.0-10.0)
[2024-02-11] MEDS: MAG HYDROX/AL HYDROX/SIMETH 30 ML UNIT-DOSE CUP PO PRN (09:52)
[2024-02-13] MEDS: cloNIDine HCL 0.1 MG TABLET PO PRN (08:49)
[2024-02-13] MEDS: BACLOFEN 10 MG TABLET (FP) PO SCH (21:34)
[2024-02-15] MEDS: NICOTINE 21 MG/24 HOURS TOPICAL PATCH TD SCH (10:42)
[2024-02-20 22:00] VITALS: RESP 18
[2024-02-21 06:58] VITALS: TEMP 97.9
[2024-02-21 09:57] VITALS: BP 111/72; PULSE 88
[2024-02-21] MEDS: NALOXONE (NYS OPIOID OVERDOSE PROGRAM) 4 MG/0.1 ML SPRAY NS SCH (15:59)
== END 2024-02-21 16:10 | disposition home or self-care (01) | DRG 772 ==
LOC: YASAS 22:35 → Y3NR 02-08 00:56 → Y5N 02-08 11:44
PROVIDERS: ADMIT Allergy & Immunology; ATTEND Psychiatry & Neurology Pain Medicine
PROC: HZ42ZZZ Group Counseling for Substance Abuse Treatment, Cognitive-Behavioral (ICD-10-PCS; principal; 2024-02-08)
DX: F11.20 Opioid dependence, uncomplicated (principal); F10.20 Alcohol dependence, uncomplicated; F14.20 Cocaine dependence, uncomplicated; F17.210 Nicotine dependence, cigarettes, uncomplicated; F31.9 Bipolar disorder, unspecified; F19.282 Other psychoactive substance dependence with psychoactive substance-induced sleep disorder; F19.280 Other psychoactive substance dependence with psychoactive substance-induced anxiety disorder; F19.24 Other psychoactive substance dependence with psychoactive substance-induced mood disorder; F41.9 Anxiety disorder, unspecified; I10 Essential (primary) hypertension; J45.20 Mild intermittent asthma, uncomplicated; K21.9 Gastro-esophageal reflux disease without esophagitis; B18.2 Chronic viral hepatitis C; Z59.01 Sheltered homelessness
CPT/HCPCS: 36415; 80053; 80305; 80307; 81003; 85027; 86780; 87389; 87811; 93005; 93010; J0475

== ENCOUNTER 2024-05-03 22:31 | Inpatient (IN) | payer OTHER ==
[2024-05-03 22:42] VITALS: BMI 25.9
[2024-05-03] MEDS ORDERED: BENZOCAINE/MENTHOL (CHLORASEPTIC ) LOZENGE MM PRN (23:16)
[2024-05-03] MEDS ORDERED: NICOTINE POLACRILEX 2 MG GUM BUC PRN (23:16)
[2024-05-03] MEDS ORDERED: BENZONATATE 200 MG CAPSULE PO PRN (23:16)
[2024-05-03] MEDS ORDERED: MAGNESIUM HYDROX 2400MG/30ML ORAL SUSPENSION 30 ML CUP PO PRN (23:16)
[2024-05-03] MEDS ORDERED: guaiFENesin 600 MG TABLET.ER (FP) PO PRN (23:16)
[2024-05-03] MEDS ORDERED: ONDANSETRON *ODT* 4 MG TABLET SL PRN (23:16)
[2024-05-03] MEDS ORDERED: MAG HYDROX/AL HYDROX/SIMETH 30 ML UNIT-DOSE CUP PO PRN (23:16)
[2024-05-03] MEDS ORDERED: POLYETHYLENE GLYCOL (HEALTHYLAX) 3350 17 GM PACKET PO PRN (23:16)
[2024-05-03] MEDS ORDERED: DICYCLOMINE HCL 10 MG CAPSULE PO PRN (23:16)
[2024-05-03] MEDS ORDERED: LOPERAMIDE HCL 2 MG CAPSULE PO PRN (23:16)
[2024-05-04] MEDS: NICOTINE 14 MG/24 HOURS TOPICAL PATCH TD SCH (09:23)
[2024-05-04] MEDS: PRENATAL VITAMINS W/ FOLIC ACID TABLET (FP) PO SCH (09:23)
[2024-05-04 09:24] LABS: HEMATOCRIT 34.7 % (35.4-49); HEMOGLOBIN 11.3 GM/dL (11.7-16.9); MCH 25.3 pg (25.7-33.7); MCHC 32.4 g/dl (32.0-35.9); MEAN CELL VOLUME 77.9 fl (80-96); MEAN PLT VOLUME 9.5 fl (7.5-11.1); PLATELET COUNT 119 10^3/uL (134-434); RBC 4.46 M/mm3 (4.00-5.60); RDW 17.8 % (11.9-15.9); WHITE BLOOD COUNT 5.9 K/mm3 (4.0-10.0)
[2024-05-04] MEDS: methaDONE HCL 10 MG TABLET PO ONE (09:26)
[2024-05-04 09:46] LABS: CHLORIDE 111 mmol/L (98-107); POTASSIUM 3.8 mmol/L (3.5-5.1); SODIUM 143 mmol/L (136-145)
[2024-05-04 10:07] LABS: ALBUMIN 3.6 g/dl (3.4-5.0); ANION GAP 7 mmol/L (4-13); BLOOD UREA NITROGEN 20.2 mg/dL (7-18); CO2 26 mmol/L (21-32); GLUCOSE,RANDOM 74 mg/dL (74-106)
[2024-05-04 10:10] LABS: SGOT/AST 32 U/L (15-37); SGPT/ALT 26 U/L (13-61)
[2024-05-04 10:11] LABS: BILIRUBIN,TOTAL 0.4 mg/dL (0.2-1)
[2024-05-04 10:12] LABS: ALK PHOS 106 U/L (45-117)
[2024-05-04] MEDS: diazePAM 5 MG TABLET PO SCH (10:41)
[2024-05-04 11:03] LABS: CALCIUM 8.5 mg/dL (8.5-10.1)
[2024-05-04] MEDS: QUEtiapine FUMARATE 50 MG TABLET PO SCH (11:41)
[2024-05-04] MEDS: SERTRALINE HCL 50 MG TABLET (FP) PO SCH (11:41)
[2024-05-04] MEDS: METHOCARBAMOL 500 MG TABLET PO PRN (13:27)
[2024-05-04] MEDS: hydrOXYzine PAMOATE 25 MG CAPSULE (FP) PO PRN (13:27)
[2024-05-04] MEDS: diazePAM 5 MG TABLET PO PRN (13:28)
[2024-05-04] MEDS: MELATONIN 5 MG TABLETS PO SCH (22:56)
[2024-05-04] MEDS: THIAMINE 100 MG TABLET PO SCH (22:56)
[2024-05-05] MEDS: methaDONE HCL 40 MG DISPERSABLE TABLET PO ONE (08:56)
[2024-05-05] MEDS: NICOTINE 21 MG/24 HOURS TOPICAL PATCH TD SCH (10:02)
[2024-05-06] MEDS: diazePAM 5 MG TABLET PO SCH (05:28)
[2024-05-06] MEDS ORDERED: methaDONE HCL 10 MG TABLET PO SCH (08:45)
[2024-05-06] MEDS: SULFAMETHOXAZOLE/TRIMETHOPRIM 800MG/160MG D.S. TABLET PO SCH (09:03)
[2024-05-07] MEDS: diazePAM 5 MG TABLET PO SCH (05:26)
[2024-05-07 20:58] VITALS: TEMP 97.7
[2024-05-08] MEDS: diazePAM 5 MG TABLET PO ONE (05:28)
[2024-05-08 08:59] VITALS: BP 128/95; PULSE 100; RESP 18
[2024-05-08] MEDS: ACETAMINOPHEN 325 MG TABLET (FP) PO PRN (10:05)
== END 2024-05-08 10:08 | disposition home or self-care (01) | DRG 773 ==
LOC: YASAS 22:31 → Y3N 23:43
PROVIDERS: ADMIT Allergy & Immunology; ATTEND Allergy & Immunology
PROC: HZ2ZZZZ Detoxification Services for Substance Abuse Treatment (ICD-10-PCS; principal; 2024-05-03)
DX: F10.230 Alcohol dependence with withdrawal, uncomplicated (principal); F11.20 Opioid dependence, uncomplicated; F14.20 Cocaine dependence, uncomplicated; F17.210 Nicotine dependence, cigarettes, uncomplicated; F31.9 Bipolar disorder, unspecified; F41.9 Anxiety disorder, unspecified; J45.909 Unspecified asthma, uncomplicated; B18.2 Chronic viral hepatitis C; H60.01 Abscess of right external ear; Z56.0 Unemployment, unspecified; Z59.00 Homelessness unspecified; Z88.0 Allergy status to penicillin; Z88.8 Allergy status to other drugs, medicaments and biological substances
CPT/HCPCS: 36415; 80053; 80305; 80307; 85027; 86780; 93005; 93010

== ENCOUNTER 2024-05-13 12:17 | Inpatient (IN) | payer OTHER ==
[2024-05-13 12:42] VITALS: BMI 27.4
[2024-05-13] MEDS ORDERED: guaiFENesin 600 MG TABLET.ER (FP) PO PRN (13:00)
[2024-05-13] MEDS ORDERED: DICYCLOMINE HCL 10 MG CAPSULE PO PRN (13:00)
[2024-05-13] MEDS ORDERED: NALOXONE (NARCAN) HCL 4 MG/0.1 ML SPRAY NS PRN (13:00)
[2024-05-13] MEDS ORDERED: methaDONE HCL 10 MG TABLET PO ONE (13:00)
[2024-05-13] MEDS ORDERED: ONDANSETRON *ODT* 4 MG TABLET SL PRN (13:00)
[2024-05-13] MEDS ORDERED: IBUPROFEN 400 MG TABLET (FP) PO PRN (13:00)
[2024-05-13] MEDS ORDERED: IBUPROFEN 600 MG TABLET (FP) PO PRN (13:00)
[2024-05-13] MEDS ORDERED: POLYETHYLENE GLYCOL (HEALTHYLAX) 3350 17 GM PACKET PO PRN (13:00)
[2024-05-13] MEDS ORDERED: BISMUTH SUBSALICYLATE 524 MG/30 ML PO PRN (13:00)
[2024-05-13] MEDS ORDERED: BENZOCAINE/MENTHOL (CHLORASEPTIC ) LOZENGE MM PRN (13:00)
[2024-05-13] MEDS ORDERED: LOPERAMIDE HCL 2 MG CAPSULE PO PRN (13:00)
[2024-05-13] MEDS ORDERED: BENZONATATE 200 MG CAPSULE PO PRN (13:00)
[2024-05-13] MEDS ORDERED: diazePAM 5 MG TABLET ONE (14:00)
[2024-05-13] MEDS ORDERED: NICOTINE 21 MG/24 HOURS TOPICAL PATCH ONE (14:01)
[2024-05-13] MEDS ORDERED: cloNIDine HCL 0.1 MG TABLET ONE (14:01)
[2024-05-13] MEDS: diazePAM 5 MG TABLET PO PRN (14:02)
[2024-05-13] MEDS: NICOTINE 21 MG/24 HOURS TOPICAL PATCH TD SCH (14:04)
[2024-05-13] MEDS: cloNIDine HCL 0.1 MG TABLET PO SCH (14:04)
[2024-05-13] MEDS: ACAMPROSATE CALCIUM 333 MG TABLET.DR PO SCH (14:26)
[2024-05-13] MEDS: diazePAM 5 MG TABLET PO SCH ×2 (14:35→14:37)
[2024-05-13] MEDS: hydrOXYzine PAMOATE 25 MG CAPSULE (FP) PO PRN (16:31)
[2024-05-13] MEDS ORDERED: DOXYCYCLINE HYCLATE 100 MG CAPSULE PO SCH (18:00)
[2024-05-13] MEDS: BACLOFEN 10 MG TABLET (FP) PO SCH (22:04)
[2024-05-13] MEDS: SULFAMETHOXAZOLE/TRIMETHOPRIM 800MG/160MG D.S. TABLET PO SCH (22:04)
[2024-05-13] MEDS: QUEtiapine FUMARATE 50 MG TABLET PO SCH (22:04)
[2024-05-13] MEDS: THIAMINE 100 MG TABLET PO SCH (22:05)
[2024-05-13] MEDS: MELATONIN 5 MG TABLETS PO SCH (22:07)
[2024-05-14] MEDS: methaDONE 40 MG, methaDONE 30 MG PO SCH (05:43)
[2024-05-14] MEDS ORDERED: methaDONE 40 MG, methaDONE 30 MG PO SCH ×2 (06:00)
[2024-05-14] MEDS ORDERED: methaDONE HCL 10 MG TABLET PO SCH (06:00)
[2024-05-14] MEDS: PRENATAL VITAMINS W/ FOLIC ACID TABLET (FP) PO SCH (09:59)
[2024-05-14] MEDS: TAMSULOSIN HCL 0.4 MG CAP PO SCH (09:59)
[2024-05-14] MEDS: SERTRALINE HCL 50 MG TABLET (FP) PO SCH (09:59)
[2024-05-14] MEDS ORDERED: methaDONE HCL 10 MG TABLET PO ONE (10:00)
[2024-05-14] MEDS: methaDONE HCL 10 MG TABLET PO ONE ×2 (10:34)
[2024-05-14] MEDS: methaDONE HCL 10 MG TABLET (FOR DETOX USE ONLY) PO ONE (10:36)
[2024-05-14 15:19] LABS: HEMATOCRIT 36.6 % (35.4-49); HEMOGLOBIN 11.4 GM/dL (11.7-16.9); MCH 24.8 pg (25.7-33.7); MCHC 31.2 g/dl (32.0-35.9); MEAN CELL VOLUME 79.4 fl (80-96); PLATELET COUNT 140 10^3/uL (134-434); RDW 18.5 % (11.9-15.9); WHITE BLOOD COUNT 5.4 K/mm3 (4.0-10.0)
[2024-05-14 15:27] LABS: POTASSIUM 4.4 mmol/L (3.5-5.1)
[2024-05-14 15:30] LABS: ALBUMIN 3.8 g/dl (3.4-5.0); BLOOD UREA NITROGEN 18.4 mg/dL (7-18); CALCIUM 8.9 mg/dL (8.5-10.1)
[2024-05-14 15:33] LABS: CREATININE 0.8 mg/dL (0.55-1.3)
[2024-05-14 15:35] LABS: BILIRUBIN,TOTAL 0.4 mg/dL (0.2-1); TOT PROT 7.4 g/dl (6.4-8.2)
[2024-05-15] MEDS ORDERED: cloNIDine HCL 0.1 MG TABLET PO PRN
[2024-05-15] MEDS: diazePAM 5 MG TABLET PO SCH (05:53)
[2024-05-15] MEDS ORDERED: methaDONE HCL 40 MG DISPERSABLE TABLET PO SCH (06:00)
[2024-05-15] MEDS ORDERED: methaDONE HCL 10 MG TABLET PO ONE ×2 (10:00)
[2024-05-15] MEDS: methaDONE HCL 10 MG TABLET PO ONE ×2 (11:05→11:42)
[2024-05-15] MEDS: MAGNESIUM HYDROX 2400MG/30ML ORAL SUSPENSION 30 ML CUP PO PRN (13:42)
[2024-05-15] MEDS: MAG HYDROX/AL HYDROX/SIMETH 30 ML UNIT-DOSE CUP PO PRN (13:42)
[2024-05-16] MEDS: diazePAM 5 MG TABLET PO SCH (06:04)
[2024-05-16] MEDS: methaDONE HCL 40 MG DISPERSABLE TABLET PO ONE (06:50)
[2024-05-16] MEDS ORDERED: methaDONE HCL 10 MG TABLET PO ONE (10:00)
[2024-05-16] MEDS ORDERED: methaDONE HCL 40 MG DISPERSABLE TABLET PO ONE ×2 (10:00)
[2024-05-16] MEDS: METHOCARBAMOL 500 MG TABLET PO PRN (10:33)
[2024-05-16] MEDS: ACETAMINOPHEN 325 MG TABLET (FP) PO PRN (22:04)
[2024-05-17] MEDS ORDERED: methaDONE HCL 40 MG DISPERSABLE TABLET PO ONE ×2 (05:00→10:00)
[2024-05-17] MEDS: diazePAM 5 MG TABLET PO ONE (05:56)
[2024-05-17] MEDS ORDERED: methaDONE HCL 10 MG TABLET PO SCH (06:00)
[2024-05-17] MEDS: methaDONE HCL 10 MG TABLET PO ONE ×2 (15:08→17:12)
[2024-05-18] MEDS ORDERED: methaDONE HCL 40 MG DISPERSABLE TABLET PO ONE ×2 (05:00→10:00)
[2024-05-20 09:05] VITALS: BP 146/83; PULSE 79; RESP 18; TEMP 97.6
== END 2024-05-20 10:55 | disposition home or self-care (01) | DRG 773 ==
LOC: YASAS 12:17 → Y6N 13:36
PROVIDERS: ADMIT Allergy & Immunology; ATTEND Allergy & Immunology
PROC: HZ2ZZZZ Detoxification Services for Substance Abuse Treatment (ICD-10-PCS; principal; 2024-05-13)
DX: F11.23 Opioid dependence with withdrawal (principal); F10.230 Alcohol dependence with withdrawal, uncomplicated; F14.20 Cocaine dependence, uncomplicated; F12.20 Cannabis dependence, uncomplicated; F17.210 Nicotine dependence, cigarettes, uncomplicated; F31.9 Bipolar disorder, unspecified; F41.8 Other specified anxiety disorders; B18.2 Chronic viral hepatitis C; I10 Essential (primary) hypertension; Z59.00 Homelessness unspecified
CPT/HCPCS: 36415; 80053; 80305; 80307; 85027; 86780; 93005; 93010; J0475

== ENCOUNTER 2024-06-13 09:31 | Inpatient (IN) | payer OTHER ==
[2024-06-13 10:00] VITALS: BMI 29.7
[2024-06-13] MEDS ORDERED: BENZOCAINE/MENTHOL (CHLORASEPTIC ) LOZENGE MM PRN (10:10)
[2024-06-13] MEDS ORDERED: BENZONATATE 200 MG CAPSULE PO PRN (10:10)
[2024-06-13] MEDS ORDERED: NALOXONE (NARCAN) HCL 4 MG/0.1 ML SPRAY NS PRN (10:10)
[2024-06-13] MEDS ORDERED: DICYCLOMINE HCL 10 MG CAPSULE PO PRN (10:10)
[2024-06-13] MEDS ORDERED: ACETAMINOPHEN 325 MG TABLET (FP) PO PRN (10:10)
[2024-06-13] MEDS ORDERED: LOPERAMIDE HCL 2 MG CAPSULE PO PRN (10:10)
[2024-06-13] MEDS ORDERED: IBUPROFEN 400 MG TABLET (FP) PO PRN (10:10)
[2024-06-13] MEDS ORDERED: IBUPROFEN 600 MG TABLET (FP) PO PRN (10:10)
[2024-06-13] MEDS ORDERED: BISMUTH SUBSALICYLATE 524 MG/30 ML PO PRN (10:10)
[2024-06-13] MEDS ORDERED: ONDANSETRON *ODT* 4 MG TABLET SL PRN (10:10)
[2024-06-13] MEDS ORDERED: guaiFENesin 600 MG TABLET.ER (FP) PO PRN (10:10)
[2024-06-13] MEDS ORDERED: diazePAM 5 MG TABLET PO SCH (11:00)
[2024-06-13] MEDS: PRENATAL VITAMINS W/ FOLIC ACID TABLET (FP) PO SCH (11:03)
[2024-06-13] MEDS: diazePAM 5 MG TABLET PO ONE (11:05)
[2024-06-13] MEDS: NICOTINE 21 MG/24 HOURS TOPICAL PATCH TD SCH (11:05)
[2024-06-13] MEDS: diazePAM 5 MG TABLET PO PRN (13:52)
[2024-06-13] MEDS: QUEtiapine FUMARATE 50 MG TABLET PO ONE (15:06)
[2024-06-13] MEDS: METHOCARBAMOL 500 MG TABLET PO PRN (15:41)
[2024-06-13] MEDS: hydrOXYzine PAMOATE 25 MG CAPSULE (FP) PO PRN (15:41)
[2024-06-13] MEDS: diazePAM 5 MG TABLET PO SCH (17:21)
[2024-06-13] MEDS: cloNIDine HCL 0.1 MG TABLET PO ONE (19:11)
[2024-06-13] MEDS: QUEtiapine FUMARATE 50 MG TABLET PO SCH (22:11)
[2024-06-13] MEDS: THIAMINE 100 MG TABLET PO SCH (22:11)
[2024-06-13] MEDS: MELATONIN 5 MG TABLETS PO SCH (22:12)
[2024-06-14] MEDS ORDERED: methaDONE HCL 40 MG DISPERSABLE TABLET PO SCH (06:00)
[2024-06-14] MEDS: MAG HYDROX/AL HYDROX/SIMETH 30 ML UNIT-DOSE CUP PO PRN (06:57)
[2024-06-14] MEDS: TAMSULOSIN HCL 0.4 MG CAP PO SCH (07:46)
[2024-06-14] MEDS: SERTRALINE HCL 50 MG TABLET (FP) PO SCH (09:38)
[2024-06-14] MEDS: VITAMINS A AND D TOPICAL OINTMENT TP SCH (11:24)
[2024-06-14 11:38] LABS: HEMATOCRIT 37.1 % (40.1-51.0); HEMOGLOBIN 11.3 g/dL (13.7-17.5); MCHC 30.5 g/dl (32.3-36.5); MEAN CELL VOLUME 85.3 fl (79.0-92.2); MEAN PLT VOLUME 12.1 fl (9.4-12.4); PLATELET COUNT 208 x10^3/uL (163-337); RDW 16.6 % (12.0-15.6)
[2024-06-14 11:56] LABS: POTASSIUM 3.9 mmol/L (3.5-5.1)
[2024-06-14 12:29] LABS: ALBUMIN 3.8 g/dl (3.4-5.0); BLOOD UREA NITROGEN 19.1 mg/dL (7-18); CALCIUM 8.7 mg/dL (8.5-10.1)
[2024-06-14 12:33] LABS: CREATININE 0.9 mg/dL (0.55-1.3)
[2024-06-14 12:34] LABS: BILIRUBIN,TOTAL 0.5 mg/dL (0.2-1); TOT PROT 7.5 g/dl (6.4-8.2)
[2024-06-15] MEDS: diazePAM 5 MG TABLET PO SCH (05:33)
[2024-06-15] MEDS ORDERED: methaDONE HCL 10 MG TABLET PO SCH (06:00)
[2024-06-15] MEDS: MAGNESIUM HYDROX 2400MG/30ML ORAL SUSPENSION 30 ML CUP PO PRN (16:02)
[2024-06-15] MEDS: FAMOTIDINE 20 MG TABLET PO SCH (16:02)
[2024-06-15] MEDS: POLYETHYLENE GLYCOL (HEALTHYLAX) 3350 17 GM PACKET PO PRN (20:04)
[2024-06-16] MEDS: diazePAM 5 MG TABLET PO SCH (05:31)
[2024-06-16] MEDS: methaDONE HCL 10 MG TABLET PO ONE (11:53)
[2024-06-17] MEDS: methaDONE HCL 10 MG TABLET PO ONE (06:02)
[2024-06-17] MEDS: diazePAM 5 MG TABLET PO ONE (06:03)
[2024-06-17 08:41] VITALS: BP 119/75; PULSE 91; RESP 18; TEMP 97.8
[2024-06-17] MEDS ORDERED: QUEtiapine FUMARATE 25 MG TABLET ONE (09:40)
== END 2024-06-17 09:45 | disposition home or self-care (01) | DRG 773 ==
LOC: YASAS 09:31 → Y6N 10:51
PROVIDERS: ADMIT Allergy & Immunology; ATTEND Allergy & Immunology
PROC: HZ2ZZZZ Detoxification Services for Substance Abuse Treatment (ICD-10-PCS; principal; 2024-06-13)
DX: F10.230 Alcohol dependence with withdrawal, uncomplicated (principal); F11.20 Opioid dependence, uncomplicated; F14.20 Cocaine dependence, uncomplicated; F12.20 Cannabis dependence, uncomplicated; F17.210 Nicotine dependence, cigarettes, uncomplicated; F33.1 Major depressive disorder, recurrent, moderate; F19.282 Other psychoactive substance dependence with psychoactive substance-induced sleep disorder; I10 Essential (primary) hypertension; J45.20 Mild intermittent asthma, uncomplicated; K21.9 Gastro-esophageal reflux disease without esophagitis; Z59.00 Homelessness unspecified; Z56.0 Unemployment, unspecified; Z88.0 Allergy status to penicillin; Z88.8 Allergy status to other drugs, medicaments and biological substances
CPT/HCPCS: 36415; 80053; 80305; 80307; 85027; 86780; 93005; 93010

== ENCOUNTER 2024-09-10 17:06 | Inpatient (IN) | payer OTHER ==
[2024-09-10 17:32] VITALS: BMI 31.4
[2024-09-10] MEDS ORDERED: guaiFENesin 600 MG TABLET.ER (FP) PO PRN (18:06)
[2024-09-10] MEDS ORDERED: BENZOCAINE/MENTHOL (CHLORASEPTIC ) LOZENGE MM PRN (18:06)
[2024-09-10] MEDS ORDERED: POLYETHYLENE GLYCOL (HEALTHYLAX) 3350 17 GM PACKET PO PRN (18:06)
[2024-09-10] MEDS ORDERED: BENZONATATE 200 MG CAPSULE PO PRN (18:06)
[2024-09-10] MEDS ORDERED: BISMUTH SUBSALICYLATE 524 MG/30 ML PO PRN (18:06)
[2024-09-10] MEDS ORDERED: DICYCLOMINE HCL 10 MG CAPSULE PO PRN (18:06)
[2024-09-10] MEDS ORDERED: LOPERAMIDE HCL 2 MG CAPSULE PO PRN (18:06)
[2024-09-10] MEDS ORDERED: IBUPROFEN 400 MG TABLET (FP) PO PRN (18:06)
[2024-09-10] MEDS ORDERED: NALOXONE (NARCAN) HCL 4 MG/0.1 ML SPRAY NS PRN (18:06)
[2024-09-10] MEDS: METHOCARBAMOL 500 MG TABLET PO PRN (19:24)
[2024-09-10] MEDS: hydrOXYzine PAMOATE 25 MG CAPSULE (FP) PO PRN (19:24)
[2024-09-10] MEDS: MELATONIN 5 MG TABLETS PO SCH (22:12)
[2024-09-10] MEDS: THIAMINE 100 MG TABLET PO SCH (22:12)
[2024-09-10] MEDS: NICOTINE POLACRILEX 2 MG GUM BUC PRN (22:14)
[2024-09-11] MEDS: PRENATAL VITAMINS W/ FOLIC ACID TABLET (FP) PO SCH (09:37)
[2024-09-11] MEDS: NICOTINE 14 MG/24 HOURS TOPICAL PATCH TD SCH (10:40)
[2024-09-11 11:39] LABS: MCHC 32.5 g/dl (32.3-36.5); MEAN CELL VOLUME 81.0 fl (79.0-92.2); MEAN PLT VOLUME 11.9 fl (9.4-12.4); RDW 13.8 % (12.0-15.6)
[2024-09-11 13:15] LABS: CO2 25 mmol/L (21-32); GLUCOSE,RANDOM 115 mg/dL (74-106)
[2024-09-11 13:18] LABS: CREATININE 1.2 mg/dL (0.55-1.3); SGOT/AST 58 U/L (15-37); SGPT/ALT 50 U/L (13-61)
[2024-09-11 13:20] LABS: TOT PROT 8.6 g/dl (6.4-8.2)
[2024-09-11 13:21] LABS: ALK PHOS 134 U/L (45-117)
[2024-09-11] MEDS: ONDANSETRON *ODT* 4 MG TABLET SL PRN (13:53)
[2024-09-11] MEDS ORDERED: NICOTINE 21 MG/24 HOURS TOPICAL PATCH TD SCH (15:16)
[2024-09-11] MEDS: NICOTINE 21 MG/24 HOURS TOPICAL PATCH TD SCH (16:40)
[2024-09-12] MEDS: MAG HYDROX/AL HYDROX/SIMETH 30 ML UNIT-DOSE CUP PO PRN (03:39)
[2024-09-12] MEDS: SERTRALINE HCL 50 MG TABLET (FP) PO SCH (09:36)
[2024-09-12] MEDS: MAGNESIUM HYDROX 2400MG/30ML ORAL SUSPENSION 30 ML CUP PO PRN (10:14)
[2024-09-12] MEDS: PANTOPRAZOLE 20 MG TABLET PO SCH (14:31)
[2024-09-13] MEDS: NICOTINE 21 MG/24 HOURS TOPICAL PATCH TD SCH (07:00)
[2024-09-13] MEDS: IBUPROFEN 600 MG TABLET (FP) PO PRN (10:17)
[2024-09-13 12:34] LABS: CO2 30.0 mmol/L (21-32); GLUCOSE,RANDOM 107.0 mg/dL (74-106)
[2024-09-13 12:38] LABS: CREATININE 0.9 mg/dL (0.55-1.3)
[2024-09-14] MEDS: ACETAMINOPHEN 325 MG TABLET (FP) PO PRN (21:06)
[2024-09-15 06:32] VITALS: TEMP 98
[2024-09-15 09:10] VITALS: BP 122/89; PULSE 80; RESP 18
== END 2024-09-15 09:37 | disposition other institution (70) | DRG 773 ==
LOC: YASAS 17:06 → Y3N 18:31
PROVIDERS: ADMIT Neuromusculoskeletal Medicine & OMM; ATTEND Allergy & Immunology
PROC: HZ2ZZZZ Detoxification Services for Substance Abuse Treatment (ICD-10-PCS; principal; 2024-09-10)
DX: F10.230 Alcohol dependence with withdrawal, uncomplicated (principal); F11.20 Opioid dependence, uncomplicated; F14.20 Cocaine dependence, uncomplicated; F17.210 Nicotine dependence, cigarettes, uncomplicated; F19.24 Other psychoactive substance dependence with psychoactive substance-induced mood disorder; B18.2 Chronic viral hepatitis C; I10 Essential (primary) hypertension; J45.909 Unspecified asthma, uncomplicated; E79.89 Other specified disorders of purine and pyrimidine metabolism; Z88.0 Allergy status to penicillin; Z88.8 Allergy status to other drugs, medicaments and biological substances
CPT/HCPCS: 36415; 80048; 80053; 80305; 80307; 85027; 86780; 93005; 93010; Q0162